=== PATIENT | male | born 1955 | race Caucasian/White ===

== ENCOUNTER 2017-04-18 10:13 | Emergency (ER) | payer BC ==
[2017-04-18 10:22] VITALS: BP 101/59; BMI 26.7
--- NOTE | 2017-04-18 11:05 | DR.GENAD ---
HPI - PCP Primary Care Physician: Jamil - HPI Comment HPI Comment: HISTORY BELOW. - Complaint/Symptoms Chief Complaint Doctors Comments: POST KNEE SURGERY LAST MONTH. PATIENT HAD IT POP 4 DAYS AGO. INCREASING PAIN SINCE. Chief Complaint:: Pt states he had a left knee replacement on the last month. Pt states he sat down in a low chair on monday and heard a pop and his doctor told him to come get an xray. - Nurses notes reviewed Nurses Notes Review: Yes - Source History Provided: Patient, Significant Other - Mode of Arrival Mode of Arrival: Ambulatory - Timing Onset of Chief Complaint: 04/14/17 Came on: Suddenly - Duration Duration: Constant Duration: Days - Severity Severity: Moderate PMH - PMH Past Medical History: Yes Past Medical History: GERD, Hypertension Past Surgical History: Yes Surgical History: Cholecystectomy, Ortho Surgery, Tonsillectomy Past Surgical History Comment: bilateral knee replacement - Family History History of Family Medical Conditions: Yes Family Medical History: [place], Hypertension - Social History Does patient currently use any type of tobacco product: No Have you used tobacco products in the last 12 months: No Type of Tobacco Use: None Does any household member use tobacco: No Alcohol Use: None Do you use any recreational Drugs:: No Lives With: Spouse Lives Where: Home - infectious screening In the last 2 months have you had wt loss of >10#?: NO Have you had fever, night sweats or hemotysis?: No Have you traveled outside the country in the last 6 months?: No Isolation: Standard ROS - Review of Systems Constitutional: No Symptoms Reported Eyes: No Symptoms Reported ENTM: No Symptoms Reported Respiratoy: No Symptoms Reported Cardiovascular: No Symptoms Reported Gastrointestinal/Abdominal: No Symptoms Reported Genitourinary: No Symptoms Reported Neurological: No Symptoms Reported Musculoskeletal: Left, Knee Integumentary: No Symptoms Reported Hematologic/Lymphatic: No Symptoms Reported Endocrine: No Symptoms Reported All Other Systems: Reviewed and Negative PE - Vital Signs Vitals: Temperature 97.8 F Pulse Rate 18 Respiratory Rate 51 Blood Pressure 101/59 O2 Sat by Pulse Oximetry 96 - General Limitations: No Limitations General Appearance: Alert - Head Head Exam: Normal Inspection - Eyes Eye exam: Normal Appearance - ENT ENT Exam: Normal External Ear Exam TM/Canal Exam: Left Normal Nose Exam: Normal Nose Exam Mouth Exam: Normal Inspection Throat Exam: Normal Inspection - Neck Neck Exam: Normal Inspection - Chest Chest Inspection: Normal Inspection - Respiratory Respiratory Exam: Normal Lung Sounds Bilat Respiratory Exam: Bilateral Clear to Auscultation - Cardiovascular Cardiovascular Exam: Regular Rate, Normal Rhythm, Normal Heart Sounds - Abdominal Exam Abdominal Exam: Normal Bowel Sounds - Extremities Extremities Exam: Tenderness (LT KNEE), Joint Swelling (LT KNEE) - Back Back Exam: Normal Inspection - Neurologic Neurological Exam: Alert, Oriented X3 - Psychiatric Psychiatric Exam: Normal Affect, Normal Mood - Skin Skin Exam: Normal Color MDM - Additional Information Additional Information Obtained From: Family - Differential Diagnosis Differential Diagnosis: LT KNEE PAIN, POST KNEE SURGERY Course - Treatment Treatment: SEE ORDERS. - Education/Counseling Education/Counseling: Patient, Family, Education Educated On: Diagnosis, Needs for Follow Up ROR - XRAY XRAY Interpreted by: Radiologist XRAY Findings: REPORT DISCUSS WITH PATIENT AND HIS . - Diagnosis Discharge Problem: Knee sprain Qualifiers: Encounter type: initial encounter Involved ligament of knee: unspecified ligament Laterality: left Qualified Code(s): S83.92XA - Sprain of unspecified site of left knee, initial encounter - Discharge Plan Disposition: 01 HOME, SELF-CARE Condition: Stable - Follow ups/Referrals Follow ups/Referrals: Jimbo Negron [Primary Care Provider] - 1 day - Instructions Instructions: Knee Sprain, [id number] Additional Instructions: RETURN TO ED IF WORSE.
--- NOTE | 2017-04-18 11:17 | RAD ---
HISTORY: Injury, left knee pain Study: Left knee two view Comparison: None Findings: The patient is status post total knee arthroplasty. Position and alignment is anatomic. There is no evidence for fracture, loosening, or joint effusion. IMPRESSION: Status post left TKA in good position without acute findings Reported By:
== END 2017-04-18 12:11 | disposition home or self-care (01) ==
LOC: ER 10:25
DX: S83.92XA Sprain of unspecified site of left knee, initial encounter (principal); Z96.652 Presence of left artificial knee joint; Y33.XXXA Other specified events, undetermined intent, initial encounter; Y92.9 Unspecified place or not applicable
CPT/HCPCS: 73560; 99282; 99283

== ENCOUNTER → 2017-05-01 | Outpatient (CLI) | payer BC ==
[2017-04-18 10:22] VITALS: BP 101/59
--- NOTE | 2017-05-01 10:19 | VAS ---
HISTORY: Coronary artery disease. Study: Carotid ultrasound. Comparison: Carotid ultrasound dated August 11, 2016. Technique: Multiple ma scale and color flow Doppler images of the right and left carotid arterial system were obtained. The vertebral arterial system was evaluated as well. Findings: Normal color flow Doppler is seen throughout the right and left carotid arterial system. Scattered calcific plaque. No hemodynamically significant stenosis is seen based on velocity criteria. The ri ght and left vertebral arteries demonstrate antegrade flow. IMPRESSION: 1. No hemodynamically significant stenosis. Reported By:
== END ==
LOC: RAD 09:28
PROVIDERS: ATTEND Thoracic Surgery (Cardiothoracic Vascular Surgery)
DX: I25.10 Atherosclerotic heart disease of native coronary artery without angina pectoris (principal)
CPT/HCPCS: 93880

== ENCOUNTER 2018-03-22 07:58 | Day surgery (SDC) | payer BC ==
[2018-03-22] MEDS ORDERED: D5 LR 1000 ML 1,000 ML IV ONE (08:25)
[2018-03-22] MEDS ORDERED: DIPRIVAN VIAL 20 ML ONE (10:27)
[2018-03-22 11:21] VITALS: BP 112/60
== END 2018-03-22 11:18 | disposition home or self-care (01) ==
LOC: SURG1 07:58
PROVIDERS: ATTEND Internal Medicine Gastroenterology
PROC: 0DJD8ZZ Inspection of Lower Intestinal Tract, Via Natural or Artificial Opening Endoscopic (ICD-10-PCS; principal; 2018-03-22 10:15)
PROC: 0DBL8ZX Excision of Transverse Colon, Via Natural or Artificial Opening Endoscopic, Diagnostic (ICD-10-PCS; principal; 2018-03-22 10:15)
PROC: 0DBP8ZX Excision of Rectum, Via Natural or Artificial Opening Endoscopic, Diagnostic (ICD-10-PCS; principal; 2018-03-22 10:15)
DX: Z12.11 Encounter for screening for malignant neoplasm of colon (principal); K63.5 Polyp of colon; K64.0 First degree hemorrhoids; K57.30 Diverticulosis of large intestine without perforation or abscess without bleeding; Z86.010 Personal history of colon polyps; D12.3 Benign neoplasm of transverse colon
CPT/HCPCS: A4217; J3490; J7120

== ENCOUNTER → 2018-03-28 | Outpatient (CLI) | payer BC ==
[2018-03-22 11:21] VITALS: BP 112/60
[2018-03-28 11:01] LABS: BASOPHILS % (AUTO) 1.1 % (0.2-1.0); EOSINOPHILS # (AUTO) 0.3 x10^3/uL (0.0-0.2); EOSINOPHILS % (AUTO) 7.1 % (0.9-2.9); HEMATOCRIT 40.6 % (42.0-54.0); LYMPHOCYTES # (AUTO) 0.7 X10^3/uL (1.3-2.9); LYMPHOCYTES % (AUTO) 16.4 % (21.0-51.0); MEAN CORPUSCULAR HEMOGLOBIN 33.7 pg (27.0-34.0); MEAN CORPUSCULAR HGB CONC 34.4 g/dL (33.0-35.0); MEAN CORPUSCULAR VOLUME 98.1 fL (80.0-100.0); MEAN PLATELET VOLUME 7.8 fL (7.4-11.0); MONOCYTES # (AUTO) 0.3 x10^3/uL (0.3-0.8); MONOCYTES % (AUTO) 7.2 % (0.0-13.0); NEUTROPHILS # (AUTO) 3.1 x10^3/uL (2.2-4.8); NEUTROPHILS % (AUTO) 68.2 % (42.0-75.0); PLATELET COUNT 173 X10^3/uL (150.0-450.0); RED BLOOD COUNT 4.14 X10^6/uL (4.7-6.0); RED CELL DISTRIBUTION WIDTH 13.5 % (11.6-16.5); WHITE BLOOD COUNT 4.5 X10^3/uL (3.6-10.0)
[2018-03-28 11:23] LABS: ALANINE AMINOTRANSFERASE 27 Units/L (12-78); ALBUMIN 3.4 g/dL (3.4-5.0); ALKALINE PHOSPHATASE 67 Units/L (46-116); ASPARTATE AMINO TRANSFERASE 17 Units/L (15-37); BILIRUBIN,DIRECT 0.18 mg/dL (0-0.2); BLOOD UREA NITROGEN 26 mg/dL (7-18); CALCIUM 8.1 mg/dL (8.5-10.1); CARBON DIOXIDE 27.6 mmol/L (21-32); CHLORIDE 107 mmol/L (98-107); CREATININE 2.23 mg/dL (0.70-1.30); SODIUM 139 mmol/L (136-145); TOTAL PROTEIN 6.1 g/dL (6.4-8.2); TSH (3RD GENERATION) 1.766 uIU/mL (0.358-3.74); eGFR BLACK RACES 38 (>60); eGFR NON BLACK RACES 32 (>60)
== END ==
LOC: LAB 10:27
PROVIDERS: ATTEND Physician Assistant
DX: R53.83 Other fatigue (principal); I71.2 Thoracic aortic aneurysm, without rupture
CPT/HCPCS: 36415; 80048; 80076; 84443; 85025

== ENCOUNTER 2023-05-12 13:51 | Observation (INO) ==
[2023-05-12] MEDS ORDERED: NS 500 ML IV 500 ML IV ONE (15:46)
[2023-05-12 16:03] VITALS: BMI 27.7
[2023-05-12 16:15] LABS: BASOPHILS % (AUTO) 0.9 % (0.2-1.0); EOSINOPHILS # (AUTO) 0.2 x10^3/uL (0.0-0.2); EOSINOPHILS % (AUTO) 3.8 % (0.9-2.9); HEMATOCRIT 31.1 % (42.0-54.0); HEMOGLOBIN 10.5 g/dL (13.5-18.0); LYMPHOCYTES # (AUTO) 0.8 X10^3/uL (1.3-2.9); LYMPHOCYTES % (AUTO) 18.9 % (21.0-51.0); MEAN CORPUSCULAR HEMOGLOBIN 32.1 pg (27.0-34.0); MEAN CORPUSCULAR HGB CONC 33.7 g/dL (33.0-35.0); MEAN CORPUSCULAR VOLUME 95.2 fL (80.0-100.0); MEAN PLATELET VOLUME 8.2 fL (7.4-11.0); MONOCYTES # (AUTO) 0.4 x10^3/uL (0.3-0.8); MONOCYTES % (AUTO) 8.8 % (0.0-13.0); NEUTROPHILS # (AUTO) 2.9 x10^3/uL (2.2-4.8); NEUTROPHILS % (AUTO) 67.6 % (42.0-75.0); PLATELET COUNT 171 X10^3/uL (150.0-450.0); RED BLOOD COUNT 3.27 X10^6/uL (4.7-6.0); WHITE BLOOD COUNT 4.3 X10^3/uL (3.6-10.0)
[2023-05-12 16:26] LABS: ALANINE AMINOTRANSFERASE 17 Units/L (12-78); ALBUMIN 3.8 g/dL (3.4-5.0); ALKALINE PHOSPHATASE 55 Units/L (46-116); ASPARTATE AMINO TRANSFERASE 17 Units/L (15-37); BLOOD UREA NITROGEN 42 mg/dL (7-18); CALCIUM 8.9 mg/dL (8.5-10.1); CARBON DIOXIDE 29.9 mmol/L (21-32); CHLORIDE 101 mmol/L (98-107); CREATININE 2.72 mg/dL (0.70-1.30); GLUCOSE 88 mg/dL (65-99); SODIUM 139 mmol/L (136-145); TOTAL PROTEIN 6.6 g/dL (6.4-8.2); eGFR NON BLACK RACES 25 (>60)
[2023-05-12] MEDS: NS 1,000 ML IV 1,000 ML IV SCH (18:40)
[2023-05-12] MEDS ORDERED: NORCO 5/325 MG TAB PO PRN (23:39)
[2023-05-13] MEDS: NS 1,000 ML IV 1,000 ML IV SCH (05:58)
[2023-05-13 06:28] LABS: BASOPHILS % (AUTO) 0.9 % (0.2-1.0); EOSINOPHILS # (AUTO) 0.2 x10^3/uL (0.0-0.2); EOSINOPHILS % (AUTO) 4.8 % (0.9-2.9); HEMATOCRIT 29.8 % (42.0-54.0); HEMOGLOBIN 10.1 g/dL (13.5-18.0); LYMPHOCYTES # (AUTO) 1.2 X10^3/uL (1.3-2.9); LYMPHOCYTES % (AUTO) 32.2 % (21.0-51.0); MEAN CORPUSCULAR HGB CONC 33.8 g/dL (33.0-35.0); MEAN CORPUSCULAR VOLUME 94.6 fL (80.0-100.0); MEAN PLATELET VOLUME 8.3 fL (7.4-11.0); MONOCYTES # (AUTO) 0.3 x10^3/uL (0.3-0.8); MONOCYTES % (AUTO) 8.6 % (0.0-13.0); NEUTROPHILS % (AUTO) 53.5 % (42.0-75.0); PLATELET COUNT 158 X10^3/uL (150.0-450.0); RED BLOOD COUNT 3.15 X10^6/uL (4.7-6.0); RED CELL DISTRIBUTION WIDTH 14.1 % (11.6-16.5); WHITE BLOOD COUNT 3.7 X10^3/uL (3.6-10.0)
[2023-05-13 06:53] LABS: ALANINE AMINOTRANSFERASE 17 Units/L (12-78); ALBUMIN 3.3 g/dL (3.4-5.0); ALKALINE PHOSPHATASE 50 Units/L (46-116); ASPARTATE AMINO TRANSFERASE 16 Units/L (15-37); BLOOD UREA NITROGEN 36 mg/dL (7-18); CALCIUM 8.9 mg/dL (8.5-10.1); CHLORIDE 104 mmol/L (98-107); COR CA(FOR HYPOALB) 9.5 mg/dL (8.5-10.1); GLUCOSE 93 mg/dL (65-99); POTASSIUM 3.8 mmol/L (3.5-5.1); SODIUM 140 mmol/L (136-145); eGFR NON BLACK RACES 30 (>60)
[2023-05-13 08:15] VITALS: BP 171/77; PULSE 64; RESP 18; TEMP 98.1; O2SAT 94
--- NOTE | 2023-05-28 21:58 | DR.UPDATE ---
H&P Update H&P Reviewed: Yes Any changes to H&P?: Yes Changes noted:: PRESENTED TO THE OFFICE TODAY WITH COMPLAINTS OF WEAKNESS, FATIGUE, UNSTEADY GAIT, DISORIENTATION, ELEVATED BLOOD PRESSURE. WE REVIEWED HIS LABS THAT WERE OBTAINED ON 05/11/23. BUN 35, CREATININE 2.81, GFR 24, RBC 3.32, HGB 10.4, HCT 33.2. ALL OTHER LAB VALUES WERE WITHIN NORMAL LIMITS. DUE TO ELEVATED BUN/CREATININE AND HIS SYMPTOMS, PATIENT WAS ADMITTED TO THE HOSPITAL OBSERVATION STATUS FOR EVALUATION AND TREATMENT OF ACUTE ON CHRONIC RENAL FAILURE, ANEMIA, GENERALIZED WEAKNESS, AND HTN. PATIENT HAS A PMH OF HTN, CHF, CAD, CABG, MDD, AND CHRONIC RENAL DISEASE. ON ARRIVAL TO THE HOSPITAL, HIS VITALS WERE: 97.8-64-20-96%-166/72. LABS WERE OBTAINED. WBC 4.3, RBC 3.27, HGB 10.5, HCT 31.1, PLT COUNT 171, SODIUM 139, POTASSIUM 4.0, CHLORIDE 101, CARBON DIOXIDE 29.9, BUN 42, CREATININE 2.72, GFR 25, GLUCOSE 88, CALCIUM 8.9, TOTAL BILI 0.70, AST 17, ALT 17, ALK PHOS 55, TOTAL PROTEIN 6.6, ALBUMIN 3.8. WE GAVE PATIENT A ONE LITER NORMAL SALINE BOLUS. HE WAS THEN STARTED ON NORMAL SALINE AT 75 ML/HR. WE WILL RESUME HIS HOME MEDICATIONS OF ATORVASTATIN, ENTRESTO, ELIQUIS, CARVEDILOL, FIORICET, BUPROPION, DULOXETINE, CLONAZEPAM, OMEPRAZOLE, LEVOTHYROXINE, PRAMIPEXOLE, OXYBUTYNIN, AND TIZANIDINE. OTHERWISE, WE WILL FOLLOW-UP WITH AM LABS AND CONTINUE TO MONITOR. TIME SPENT ON CLINICAL ASSESSMENT, REVIEWING LABS AND IMAGING, DECISION MAKING, AND DOCUMENTATION GREATER THAN 75 MINUTES. Patient was examined?: Yes
== END 2023-05-13 11:06 | disposition home or self-care (01) ==
LOC: MED/SURG
PROVIDERS: ADMIT Internal Medicine; ATTEND Internal Medicine

== ENCOUNTER 2024-02-13 22:52 | Observation (INO) ==
--- NOTE | 2024-02-13 23:01 | EKG ---
Test Reason : LOW BLOOD PRESSURE Blood Pressure : */* mmHG Vent. Rate : 59 BPM Atrial Rate : 59 BPM P-R Int : 176 ms QRS Dur : 186 ms QT Int : 536 ms P-R-T Axes : 71 59 65 degrees QTc Int : 530 ms Sinus bradycardia with occasional premature ventricular complexes Nonspecific intraventricular block Nonspecific ST and T wave abnormality Abnormal ECG When compared with ECG of 20-JUL-2023 10:36, premature ventricular complexes are now present HI interval has decreased Nonspecific intraventricular block has replaced Right bundle branch block Confirmed by Wilber Turk MD ([id number]) on 02/14/2024 7:35:17 AM Referred By: Confirmed By: Wilber Turk MD
--- NOTE | 2024-02-13 23:03 | DR.EXTPAIN ---
HPI Time seen Time Seen by Provider: 02/13/24 23:03 HPI Comment HPI Comment: Brought in by ems after becoming excessively weak at home; he says he's been feeling poorly since yesterday when he noted rectal bleeding which has persisted through today; he went to see Dr Lugo who sent him for blood work, the results of which he isn't sure; he denies cp, sob, abd pain, n/v. PMH PMH Past Medical History: Diabetes, GERD and Hypertension Past Surgical History: Yes Surgical History: Joint Replacement, Ortho Surgery, Tonsillectomy and Other Family History Family Medical History: [place] and Hypertension Social History Do you use any recreational Drugs:: No ROS Review of Systems Eyes: No Symptoms Reported ENTM: No Symptoms Reported Respiratoy: No Symptoms Reported Cardiovascular: No Symptoms Reported Gastrointestinal/Abdominal: See HPI Genitourinary: No Symptoms Reported Neurological: See HPI and Dizziness Musculoskeletal: No Symptoms Reported Integumentary: No Symptoms Reported Hematologic/Lymphatic: No Symptoms Reported Endocrine: No Symptoms Reported Psychiatric: No Symptoms Reported PE Vital Signs Vitals: Vital Signs Temperature 97.8 F Pulse Rate 62 Pulse Rate 60 Pulse Rate 63 Pulse Rate 58 Pulse Rate 57 Pulse Rate 60 Pulse Rate 59 Pulse Rate 60 Pulse Rate 61 Pulse Rate 60 Respiratory Rate 19 Respiratory Rate 31 Respiratory Rate 38 Respiratory Rate 19 Respiratory Rate 22 Respiratory Rate 20 Respiratory Rate 22 Respiratory Rate 23 Respiratory Rate 19 Respiratory Rate 15 Blood Pressure 107/55 Blood Pressure 97/52 Blood Pressure 97/52 Blood Pressure 101/54 Blood Pressure 101/54 Blood Pressure 98/51 Blood Pressure 98/51 Blood Pressure 95/46 Blood Pressure 87/46 Blood Pressure 87/46 Blood Pressure 87/48 Blood Pressure 82/44 Blood Pressure 93/48 Blood Pressure 77/54 O2 Sat by Pulse Oximetry 91 O2 Sat by Pulse Oximetry 93 O2 Sat by Pulse Oximetry 100 O2 Sat by Pulse Oximetry 100 O2 Sat by Pulse Oximetry 97 O2 Sat by Pulse Oximetry 98 O2 Sat by Pulse Oximetry 96 O2 Sat by Pulse Oximetry 89 O2 Sat by Pulse Oximetry 96 General Limitations: No Limitations General Appearance: Alert and In No Apparent Distress Head Head Exam: Normal Inspection Eyes Eye exam: Normal Appearance ENT ENT Exam: Normal Exam Neck Neck Exam: Normal Inspection Chest Chest Inspection: Normal Inspection Respiratory Respiratory Exam: Normal Lung Sounds Bilat Cardiovascular Cardiovascular Exam: Regular Rate and Normal Rhythm Abdominal Exam Abdominal Exam: Normal Inspection, Normal Bowel Sounds and Soft Extremities Extremities Exam: Normal Inspection Back Back Exam: Normal Inspection Neurological Neurological Exam: Alert, Oriented X3 and CN II-XII Intact Psychiatric Psychiatric Exam: Normal Affect and Normal Mood Skin Skin Exam: Warm, Dry, Intact and Normal Color COURSE Consultation Call Returned: 00:30 (Dr Glez returned call.) Critical Care Notes Total Time (mins): 30 Critical Diagnosis: hypotension, symptomatic anemia, rectal bleeding Critical Interventions: fluids wide open labs prbc discussion w/pt and admitting physician re: need for hospitalization, stabilization and further evaluation ROR Labs Reviewed Laboratory Results Reviewed?: Yes 02/13/24 22:55 02/13/24 22:55 Laboratory: WBC 6.8 X10^3/uL (3.6-10.0) 02/13/24 22:55 RBC 1.78 X10^6/uL (4.7-6.0) L 02/13/24 22:55 Hgb 5.9 g/dL (13.5-18.0) L* 02/13/24 22:55 Hct 17.9 % (42.0-54.0) L* 02/13/24 22:55 MCV 100.5 fL (80.0-100.0) H 02/13/24 22:55 MCH 32.9 pg (27.0-34.0) 02/13/24 22:55 MCHC 32.8 g/dL (33.0-35.0) L 02/13/24 22:55 RDW 14.5 % (11.6-16.5) 02/13/24 22:55 Plt Count 276 X10^3/uL (150.0-450.0) 02/13/24 22:55 MPV 7.9 fL (7.4-11.0) 02/13/24 22:55 Neut % (Auto) 67.5 % (42.0-75.0) 02/13/24 22:55 Lymph % (Auto) 18.8 % (21.0-51.0) L 02/13/24 22:55 [place] % (Auto) 7.1 % (0.0-13.0) 02/13/24 22:55 Eos % (Auto) 5.8 % (0.9-2.9) H 02/13/24 22:55 Baso % (Auto) 0.8 % (0.2-1.0) 02/13/24 22:55 Neut # (Auto) 4.6 x10^3/uL (2.2-4.8) 02/13/24 22:55 Lymph # (Auto) 1.3 X10^3/uL (1.3-2.9) 02/13/24 22:55 [place] # (Auto) 0.5 x10^3/uL (0.3-0.8) 02/13/24 22:55 Eos # (Auto) 0.4 x10^3/uL (0.0-0.2) H 02/13/24 22:55 Baso # (Auto) 0.1 X10^3/uL (0.0-0.1) 02/13/24 22:55 Absolute Nucleated RBC 0.2 /100WBC 02/13/24 22:55 PT 18.6 SECONDS (11.8-14.3) 02/13/24 22:55 INR Target Range - 02/13/24 22:55 INR 1.58 (0.8-1.3) H 02/13/24 22:55 APTT 30.4 SECONDS (22.9-36.5) 02/13/24 22:55 PTT Comment - 02/13/24 22:55 Sodium 140 mmol/L (136-145) 02/13/24 22:55 Corrected Sodium TNP 02/13/24 22:55 Potassium 4.6 mmol/L (3.5-5.1) 02/13/24 22:55 Chloride 107 mmol/L (98-107) 02/13/24 22:55 Carbon Dioxide 21.2 mmol/L (21-32) 02/13/24 22:55 BUN 83 mg/dL (7-18) H 02/13/24 22:55 Creatinine 3.20 mg/dL (0.70-1.30) H 02/13/24 22:55 Est GFR (MDRD) Af Amer 25 (>60) L 02/13/24 22:55 Est GFR (MDRD) Non-Af 21 (>60) L 02/13/24 22:55 Glucose 104 mg/dL (65-99) H 02/13/24 22:55 Calcium 8.5 mg/dL (8.5-10.1) 02/13/24 22:55 Corrected Calcium 9.7 mg/dL (8.5-10.1) 02/13/24 22:55 Total Bilirubin 0.40 mg/dL (0.2-1.0) 02/13/24 22:55 AST 14 Units/L (15-37) L 02/13/24 22:55 ALT 9 Units/L (12-78) L 02/13/24 22:55 Alkaline Phosphatase 87 Units/L (46-116) 02/13/24 22:55 B-Natriuretic Peptide 106 pg/mL (0-79) H 02/13/24 22:55 Total Protein 5.4 g/dL (6.4-8.2) L 02/13/24 22:55 Albumin 2.5 g/dL (3.4-5.0) L 02/13/24 22:55 Globulin 2.9 g/dL (2.5-4.5) 02/13/24 22:55 Albumin/Globulin Ratio 0.9 Ratio (1.1-2.1) L 02/13/24 22:55 Blood Type A POSITIVE 02/13/24 22:55 Antibody Screen Negative 02/13/24 22:55 Crossmatch See Detail 02/13/24 22:55 Other Results Comments: 08/24/23 colonoscopy: Colon polyps, sigmoid diverticulosis, and internal hemorrhoids. Opioid Opioid Risk Tool Age (Cam box if 16-45): No History of Preadolescent Sexual Abuse: No Total: 0 Total Score Risk Category: Low Risk Copyright: Tommie DAMON predicting aberrant behaviors Discharge Plan Diagnosis Discharge Problem: Acute hypotension, Symptomatic anemia, Rectal bleed Discharge Plan Patient Disposition: ADMITTED INPATIENT Condition: Stable Prescriptions: No Action atorvastatin 20 mg tablet 1 tab PO QDAY tizanidine 4 mg tablet 1 tab PO BID omeprazole 40 mg capsule,delayed release(DR/EC) 1 cap PO QDAY [id number]-bzsjrovnoxsaq-[id number] 50-325-40 mg tablet 1 tab PO DAILY carvedilol 3.125 mg tablet 2 tab PO BID levothyroxine [Synthroid] 25 mcg tablet 1 tab PO QDAY clonazepam 2 mg tablet 1 tab PO QDAY PRN oxybutynin chloride 5 mg tablet extended release 24hr 1 tab PO QDAY pramipexole 0.25 mg tablet 0.25 tab PO TID bupropion HCl 150 mg tablet extended release 24 hr 1 tab PO QAM duloxetine 60 mg capsule,delayed release(DR/EC) 1 cap PO QDAY Eliquis 5 mg tablet 1 tab PO BID Entresto 97-103 mg tablet 1 tab PO BID furosemide 40 mg tablet 40 mg PO QDAY PRNQty: 30 1RF Rx Instructions: TAKE ONE TABLET DAILY NEEDED FOR SWELLING Health Concerns: Post Hospitalization: new medications and changes needed to prevent readmission or further decline. Pt educated and given instructions on all concerns. Plan of Treatment: Continue with present treatment and follow up plan. Pt is to keep follow up appointment as instructed and take medications as ordered. Follow ups/Referrals Follow ups/Referrals: Jimbo Negron [Primary Care Provider] - 3 days
[2024-02-13 23:16] LABS: EOSINOPHILS # (AUTO) 0.4 x10^3/uL (0.0-0.2); LYMPHOCYTES % (AUTO) 18.8 % (21.0-51.0); MEAN CORPUSCULAR HGB CONC 32.8 g/dL (33.0-35.0)
[2024-02-13 23:21] LABS: BASOPHILS # (AUTO) 0.1 X10^3/uL (0.0-0.1); BASOPHILS % (AUTO) 0.8 % (0.2-1.0); EOSINOPHILS % (AUTO) 5.8 % (0.9-2.9); INR 1.58 (0.8-1.3); LYMPHOCYTES # (AUTO) 1.3 X10^3/uL (1.3-2.9); MEAN CORPUSCULAR HEMOGLOBIN 32.9 pg (27.0-34.0); MEAN CORPUSCULAR VOLUME 100.5 fL (80.0-100.0); MEAN PLATELET VOLUME 7.9 fL (7.4-11.0); MONOCYTES # (AUTO) 0.5 x10^3/uL (0.3-0.8); MONOCYTES % (AUTO) 7.1 % (0.0-13.0); NEUTROPHILS # (AUTO) 4.6 x10^3/uL (2.2-4.8); NEUTROPHILS % (AUTO) 67.5 % (42.0-75.0); PLATELET COUNT 276 X10^3/uL (150.0-450.0); RED BLOOD COUNT 1.78 X10^6/uL (4.7-6.0); RED CELL DISTRIBUTION WIDTH 14.5 % (11.6-16.5); WHITE BLOOD COUNT 6.8 X10^3/uL (3.6-10.0)
[2024-02-13 23:25] LABS: ALANINE AMINOTRANSFERASE 9 Units/L (12-78); ALBUMIN 2.5 g/dL (3.4-5.0); ALKALINE PHOSPHATASE 87 Units/L (46-116); ASPARTATE AMINO TRANSFERASE 14 Units/L (15-37); BLOOD UREA NITROGEN 83 mg/dL (7-18); CARBON DIOXIDE 21.2 mmol/L (21-32); CHLORIDE 107 mmol/L (98-107); GLUCOSE 104 mg/dL (65-99); HEMATOCRIT 17.9 % (42.0-54.0); HEMOGLOBIN 5.9 g/dL (13.5-18.0); POTASSIUM 4.6 mmol/L (3.5-5.1); SODIUM 140 mmol/L (136-145); TOTAL PROTEIN 5.4 g/dL (6.4-8.2); eGFR NON BLACK RACES 21 (>60)
[2024-02-13 23:31] LABS: CALCIUM 8.5 mg/dL (8.5-10.1); COR CA(FOR HYPOALB) 9.7 mg/dL (8.5-10.1)
[2024-02-13] MEDS: NS 1,000 ML IV 1,000 ML IV ONE (23:31)
[2024-02-13] MEDS ORDERED: NS 250 ML IV 250 ML IV ONE (23:47)
[2024-02-14] MEDS: NS 250 ML IV 250 ML IV ONE ×2 (00:33→05:35)
[2024-02-14 02:24] LABS: APPEARANCE,URINE CLEAR (CLEAR); BILIRUBIN,URINE NEGATIVE (NEGATIVE); BLOOD/HEMOGLOBIN,URINE NEGATIVE (NEGATIVE); COLOR,URINE YELLOW (YELLOW); GLUCOSE, URINE NEGATIVE (NEGATIVE); KETONES,URINE NEGATIVE (NEGATIVE); LEUKOCYTE ESTERASE ,URINE NEGATIVE (NEGATIVE); NITRITES,URINE NEGATIVE (NEGATIVE); PROTEIN,URINE NEGATIVE (NEGATIVE); UROBILINOGEN,URINE NORMAL (NORMAL)
[2024-02-14 03:00] VITALS: BMI 29.8
[2024-02-14] MEDS: CONSULT PHARMACY - POTASSIUM & MAGNESIUM XX SCH (05:39)
[2024-02-14] MEDS: D5 1/2 NS 1,000 ML 1,000 ML IV SCH (09:08)
[2024-02-14] MEDS: PROTONIX INJ 40 MG VIAL IVP SCH ×2 (09:08→09:19)
--- NOTE | 2024-02-14 09:30 | DR.H&P ---
H&P History & Physical for Day of: H&P Date: 02/14/24 Allergies Allergies Allergy/AdvReac Type Severity Reaction Status Date / Time No Known Drug Allergies Allergy Verified 02/13/24 23:20 History of Present Illness History of Present Illness: Mr Pineda is a 69y/o male with a PMH of LEYDA, gastritis, Atrial fibrillation, GERD, HTN presented with weakness, near syncope and bloody stools. He has been having these symptoms for the past few days. He had a fall yesterday due to weakness. He sees Dr Lugo and called the office yesterday due to black stools. He was told to have labs done at the hospital. Patient went back home and had more bleeding and dizziness so EMS was called. His Hgb was 6.6 and 5.9. His BP was noted to be low. He was given IV fluids and transfused 2 units of PRBCs overnight. He feels better this morning. He has not had any bleeding since admitted. He reports black tarry stools. Denies NSAID use. Denies prior hx of black stools. He does take Eliquis for atrial fibrillation. Denies any prior bleeding episodes. Patient had a colonoscopy and EGD by Dr Lugo in Aug 2023. See scanned reports. Labs/imaging reviewed -Hgb 5.9 Plt: 276 BUN/Cr:83/3.20 Glucose 74 Plan: Follow repeat H&H, transfuse if below 8. Add IVF fluids and pantoprazole IV. Dr Blackwood has been consulted, will check with their office if plans on doing a procedure tomorrow. Patient is currently NPO. Monitor for any bleeding episodes. Continue ICU care with telemetry. Hold Eliquis. Monitor AM labs/imaging. Past Medical History Past Medical History: Diabetes, GERD and Hypertension Past Surgical History Surgical History: Angioplasty/Stents and Ortho Surgery Family History Family Medical History: [place] and Hypertension Social History Does patient currently use any type of tobacco product: No Have you used tobacco products in the last 12 months: No Type of Tobacco Use: None How many years tobacco product used: 20 Does any household member use tobacco: No Alcohol Use: None Drug Use: None Medications Home Medications: Home Medications Medication Instructions Recorded Confirmed Type apixaban 5 mg tablet (Eliquis) 5 mg PO BID 04/12/23 02/14/24 History atorvastatin 20 mg tablet 20 mg PO QDAY 04/12/23 02/14/24 History bupropion HCl 150 mg 24 hr tablet, 150 mg PO QAM 04/12/23 02/14/24 History extended release clonazepam 2 mg tablet 2 mg PO QDAY PRN 04/12/23 02/14/24 History levothyroxine 25 mcg tablet 25 mcg PO QDAY 04/12/23 02/14/24 History (Synthroid) omeprazole 40 mg capsule,delayed 40 mg PO QDAY 04/12/23 02/14/24 History release oxybutynin chloride 5 mg 5 mg PO QDAY 04/12/23 02/14/24 History tablet,extended release 24 hr pramipexole 0.25 mg tablet 0.25 tab PO TID 04/12/23 02/13/24 History tizanidine 4 mg tablet 4 mg PO BID 04/12/23 02/14/24 History sacubitril 97 mg-valsartan 103 mg 1 tab PO BID 07/20/23 02/13/24 History tablet (Entresto) carvedilol 12.5 mg tablet 6.25 mg PO BID 02/14/24 02/14/24 History Labs 02/13/24 22:55 02/13/24 22:55 Labs: Laboratory WBC 6.8 X10^3/uL (3.6-10.0) 02/13/24 22:55 RBC 1.78 X10^6/uL (4.7-6.0) L 02/13/24 22:55 Hgb 5.9 g/dL (13.5-18.0) L* 02/13/24 22:55 Hct 17.9 % (42.0-54.0) L* 02/13/24 22:55 MCV 100.5 fL (80.0-100.0) H 02/13/24 22:55 MCH 32.9 pg (27.0-34.0) 02/13/24 22:55 MCHC 32.8 g/dL (33.0-35.0) L 02/13/24 22:55 RDW 14.5 % (11.6-16.5) 02/13/24 22:55 Plt Count 276 X10^3/uL (150.0-450.0) 02/13/24 22:55 MPV 7.9 fL (7.4-11.0) 02/13/24 22:55 Neut % (Auto) 67.5 % (42.0-75.0) 02/13/24 22:55 Lymph % (Auto) 18.8 % (21.0-51.0) L 02/13/24 22:55 [place] % (Auto) 7.1 % (0.0-13.0) 02/13/24 22:55 Eos % (Auto) 5.8 % (0.9-2.9) H 02/13/24 22:55 Baso % (Auto) 0.8 % (0.2-1.0) 02/13/24 22:55 Neut # (Auto) 4.6 x10^3/uL (2.2-4.8) 02/13/24 22:55 Lymph # (Auto) 1.3 X10^3/uL (1.3-2.9) 02/13/24 22:55 [place] # (Auto) 0.5 x10^3/uL (0.3-0.8) 02/13/24 22:55 Eos # (Auto) 0.4 x10^3/uL (0.0-0.2) H 02/13/24 22:55 Baso # (Auto) 0.1 X10^3/uL (0.0-0.1) 02/13/24 22:55 Absolute Nucleated RBC 0.2 /100WBC 02/13/24 22:55 PT 18.6 SECONDS (11.8-14.3) 02/13/24 22:55 INR Target Range - 02/13/24 22:55 INR 1.58 (0.8-1.3) H 02/13/24 22:55 APTT 30.4 SECONDS (22.9-36.5) 02/13/24 22:55 PTT Comment - 02/13/24 22:55 Sodium 140 mmol/L (136-145) 02/13/24 22:55 Corrected Sodium TNP 02/13/24 22:55 Potassium 4.6 mmol/L (3.5-5.1) 02/13/24 22:55 Chloride 107 mmol/L (98-107) 02/13/24 22:55 Carbon Dioxide 21.2 mmol/L (21-32) 02/13/24 22:55 BUN 83 mg/dL (7-18) H 02/13/24 22:55 Creatinine 3.20 mg/dL (0.70-1.30) H 02/13/24 22:55 Est GFR (MDRD) Af Amer 25 (>60) L 02/13/24 22:55 Est GFR (MDRD) Non-Af 21 (>60) L 02/13/24 22:55 Glucose 104 mg/dL (65-99) H 02/13/24 22:55 POC Glucose (mg/dL) 66 mg/dL (65-99) 02/14/24 06:01 Calcium 8.5 mg/dL (8.5-10.1) 02/13/24 22:55 Corrected Calcium 9.7 mg/dL (8.5-10.1) 02/13/24 22:55 Total Bilirubin 0.40 mg/dL (0.2-1.0) 02/13/24 22:55 AST 14 Units/L (15-37) L 02/13/24 22:55 ALT 9 Units/L (12-78) L 02/13/24 22:55 Alkaline Phosphatase 87 Units/L (46-116) 02/13/24 22:55 B-Natriuretic Peptide 106 pg/mL (0-79) H 02/13/24 22:55 Total Protein 5.4 g/dL (6.4-8.2) L 02/13/24 22:55 Albumin 2.5 g/dL (3.4-5.0) L 02/13/24 22:55 Globulin 2.9 g/dL (2.5-4.5) 02/13/24 22:55 Albumin/Globulin Ratio 0.9 Ratio (1.1-2.1) L 02/13/24 22:55 Specimen Type Clean catch urine 02/14/24 02:09 Urine Color Yellow (YELLOW) 02/14/24 02:09 Urine Appearance Clear (CLEAR) 02/14/24 02:09 Urine pH 5.0 (5.0 - 8.0) 02/14/24 02:09 Ur Specific [place] 1.010 (1.000-1.030) 02/14/24 02:09 Urine Protein Negative (NEGATIVE) 02/14/24 02:09 Urine Glucose (UA) Negative (NEGATIVE) 02/14/24 02:09 Urine Ketones Negative (NEGATIVE) 02/14/24 02:09 Urine Blood Negative (NEGATIVE) 02/14/24 02:09 Urine Nitrite Negative (NEGATIVE) 02/14/24 02:09 Urine Bilirubin Negative (NEGATIVE) 02/14/24 02:09 Urine Urobilinogen Normal (NORMAL) 02/14/24 02:09 Ur Leukocyte Esterase Negative (NEGATIVE) 02/14/24 02:09 Blood Type A POSITIVE 02/13/24 22:55 Antibody Screen Negative 02/13/24 22:55 Crossmatch See Detail 02/13/24 22:55 Review of Systems Constitutional: Weakness and Malaise Eyes: No Symptoms Reported ENT: No Symptoms Reported Respiratory: No Symptoms Reported Cardiovascular: No Symptoms Reported Gastrointestinal: Melena Genitourinary: No Symptoms Reported Musculoskeletal: No Symptoms Reported Skin: Bruising and Ecchymosis Neurological: No Symptoms Reported Physical Exam Vital Signs: Vital Signs Temperature 97.2 F Temperature 97.7 F Temperature 97.4 F Temperature 97.3 F Temperature 97.0 F Pulse Rate [Left] 64 Pulse Rate [Left] 71 Pulse Rate 77 Pulse Rate 76 Pulse Rate 74 Pulse Rate 75 Pulse Rate 72 Pulse Rate 76 Pulse Rate 80 Pulse Rate 73 Pulse Rate 70 Pulse Rate 64 Respiratory Rate 16 Respiratory Rate 18 Respiratory Rate 15 Respiratory Rate 18 Respiratory Rate 17 Respiratory Rate 12 Respiratory Rate 12 Respiratory Rate 15 Respiratory Rate 16 Respiratory Rate 16 Respiratory Rate 17 Respiratory Rate 18 Blood Pressure [Left Arm] 105/54 Blood Pressure [Left Arm] 124/62 Blood Pressure 108/73 Blood Pressure 130/59 Blood Pressure 130/59 Blood Pressure 130/59 Blood Pressure 123/54 Blood Pressure 131/58 Blood Pressure 118/53 Blood Pressure 108/48 Blood Pressure 107/61 O2 Sat by Pulse Oximetry 98 O2 Sat by Pulse Oximetry 99 O2 Sat by Pulse Oximetry 99 O2 Sat by Pulse Oximetry 100 O2 Sat by Pulse Oximetry 99 O2 Sat by Pulse Oximetry 100 O2 Sat by Pulse Oximetry 100 O2 Sat by Pulse Oximetry 100 O2 Sat by Pulse Oximetry 96 O2 Sat by Pulse Oximetry 100 O2 Sat by Pulse Oximetry 99 O2 Sat by Pulse Oximetry 97 Oriented: Normal Eyes: Normal Nose: Normal Throat: Normal Respiratory: Clear Throughout Cardiovascular: Normal Auscultation: Bowel Sounds: Normal Palpation: Normal Tenderness: Normal Skin: Decreased [place] Musculoskeletal: Normal Psychiatric: Normal Mood Description: Calm Affect: Normal Speech Pattern: Clear and Appropriate Assessment/Plan (1) Acute hypotension: Status: Acute (2) Symptomatic anemia: Status: Acute (3) Fatigue: Qualifiers: Fatigue type: unspecified Qualified Code(s): R53.83 - Other fatigue Status: Acute (4) Weakness: Status: Acute (5) GI bleed: Qualifiers: GI bleed type/associated pathology: melena Qualified Code(s): K92.1 - Melena Status: Acute (6) CHF (congestive heart failure): Qualifiers: Heart failure chronicity: chronic Heart failure type: unspecified Qualified Code(s): I50.9 - Heart failure, unspecified Status: Acute (7) GERD (gastroesophageal reflux disease): Qualifiers: Esophagitis presence: without esophagitis Qualified Code(s): K21.9 - Gastro-esophageal reflux disease without esophagitis Status: Chronic (8) Diabetes mellitus: Qualifiers: Diabetes mellitus complication status: without complication Diabetes mellitus laborer marine terminal insulin use: without laborer marine terminal use Diabetes mellitus type: type 2 Qualified Code(s): E11.9 - Type 2 diabetes mellitus without complications Status: Chronic (9) TREVER (acute kidney injury): Status: Acute Review H&P Reviewed: Yes Patient was examined?: Yes
[2024-02-14 10:38] LABS: BASOPHILS # (AUTO) 0.1 X10^3/uL (0.0-0.1); BASOPHILS % (AUTO) 0.8 % (0.2-1.0); EOSINOPHILS # (AUTO) 0.4 x10^3/uL (0.0-0.2); EOSINOPHILS % (AUTO) 6.8 % (0.9-2.9); HEMATOCRIT 23.4 % (42.0-54.0); HEMOGLOBIN 7.7 g/dL (13.5-18.0); LYMPHOCYTES # (AUTO) 1.4 X10^3/uL (1.3-2.9); LYMPHOCYTES % (AUTO) 20.8 % (21.0-51.0); MEAN CORPUSCULAR HEMOGLOBIN 31.6 pg (27.0-34.0); MEAN CORPUSCULAR HGB CONC 33.1 g/dL (33.0-35.0); MEAN CORPUSCULAR VOLUME 95.5 fL (80.0-100.0); MEAN PLATELET VOLUME 7.8 fL (7.4-11.0); MONOCYTES # (AUTO) 0.5 x10^3/uL (0.3-0.8); MONOCYTES % (AUTO) 7.4 % (0.0-13.0); NEUTROPHILS # (AUTO) 4.2 x10^3/uL (2.2-4.8); NEUTROPHILS % (AUTO) 64.2 % (42.0-75.0); PLATELET COUNT 247 X10^3/uL (150.0-450.0); RED BLOOD COUNT 2.45 X10^6/uL (4.7-6.0); RED CELL DISTRIBUTION WIDTH 17.8 % (11.6-16.5); WHITE BLOOD COUNT 6.6 X10^3/uL (3.6-10.0)
[2024-02-14] MEDS: SYNTHROID 25 mcg TAB PO SCH (11:05)
[2024-02-14] MEDS: OXYBUTYNIN CHLORIDE ER PO SCH (11:05)
[2024-02-14 13:47] LABS: IRON 65 ug/dL (50-175); TOTAL IRON BINDING CAPACITY 295 ug/dL (250-450)
[2024-02-14 13:52] LABS: ALBUMIN 2.7 g/dL (3.4-5.0); ALKALINE PHOSPHATASE 89 Units/L (46-116); ASPARTATE AMINO TRANSFERASE 19 Units/L (15-37); BLOOD UREA NITROGEN 73 mg/dL (7-18); CARBON DIOXIDE 20.8 mmol/L (21-32); CHLORIDE 110 mmol/L (98-107); CREATININE 2.54 mg/dL (0.70-1.30); GLUCOSE 74 mg/dL (65-99); POTASSIUM 4.1 mmol/L (3.5-5.1); SODIUM 143 mmol/L (136-145); TOTAL PROTEIN 5.7 g/dL (6.4-8.2); eGFR NON BLACK RACES 27 (>60)
[2024-02-14 14:11] LABS: ALANINE AMINOTRANSFERASE 14 Units/L (12-78); CALCIUM 8.3 mg/dL (8.5-10.1); COR CA(FOR HYPOALB) 9.3 mg/dL (8.5-10.1)
[2024-02-14] MEDS: NS 500 ML IV 500 ML IV ONE (14:18)
--- NOTE | 2024-02-14 14:28 | DR.CONSULT ---
CONSULT Consultation for Day of: Date: 02/14/24 Chief Complaint Chief Complaint: gi bleed/ectopy Allergies Allergies Allergy/AdvReac Type Severity Reaction Status Date / Time No Known Drug Allergies Allergy Verified 02/13/24 23:20 History of Present Illness History of Present Illness: 69 yo- s/p cabg- last cath 2022: patent marroquin to lad, eyak cmflx ok, total rca and graft to rca down- ef per echo 41% last year- 2021 30%- on coreg/entresto- also on DOAC for presumed pafib( will try to verify)- anemia for awhile but acute bleed and syncope got him to hospital- bp 100 at time- now getting blood- eliquis on hold- no cardiac meds yet- tired ,weak, no cp- Past Medical History Past Medical History: Diabetes, GERD and Hypertension Past Surgical History Surgical History: Angioplasty/Stents and Ortho Surgery Family History Family Medical History: PR and Hypertension Social History Does patient currently use any type of tobacco product: No Have you used tobacco products in the last 12 months: No Type of Tobacco Use: None How many years tobacco product used: 20 Does any household member use tobacco: No Alcohol Use: None Drug Use: None Medications Home Medications: No Known Drug Allergies Allergy (Verified 02/13/24 23:20) CONTINUE taking the following medications carvedilol 12.5 mg tablet 6.25 mg PO BID 02/14/24 [History] Physical Exam Vital Signs: Vital Signs Temperature 97.9 F Temperature 97.2 F Temperature 97.7 F Pulse Rate 86 Pulse Rate 83 Pulse Rate 81 Pulse Rate 81 Pulse Rate 82 Pulse Rate 85 Pulse Rate 84 Pulse Rate 82 Pulse Rate 75 Pulse Rate 74 Pulse Rate 75 Pulse Rate 75 Pulse Rate 71 Pulse Rate 72 Pulse Rate 73 Pulse Rate 74 Pulse Rate 74 Pulse Rate 75 Pulse Rate 74 Pulse Rate 74 Pulse Rate 74 Pulse Rate 74 Pulse Rate 74 Pulse Rate 75 Pulse Rate 75 Pulse Rate 74 Pulse Rate 77 Pulse Rate 77 Pulse Rate 75 Pulse Rate 77 Pulse Rate 76 Pulse Rate 74 Pulse Rate 75 Pulse Rate 72 Pulse Rate 76 Pulse Rate 80 Respiratory Rate 16 Respiratory Rate 13 Respiratory Rate 17 Respiratory Rate 16 Respiratory Rate 17 Respiratory Rate 17 Respiratory Rate 18 Respiratory Rate 16 Respiratory Rate 16 Respiratory Rate 15 Respiratory Rate 32 Respiratory Rate 31 Respiratory Rate 17 Respiratory Rate 15 Respiratory Rate 16 Respiratory Rate 16 Respiratory Rate 14 Respiratory Rate 30 Respiratory Rate 21 Respiratory Rate 23 Respiratory Rate 28 Respiratory Rate 21 Respiratory Rate 24 Respiratory Rate 26 Respiratory Rate 19 Respiratory Rate 17 Respiratory Rate 15 Respiratory Rate 23 Respiratory Rate 18 Respiratory Rate 16 Respiratory Rate 18 Respiratory Rate 15 Respiratory Rate 18 Respiratory Rate 17 Respiratory Rate 12 Respiratory Rate 12 Blood Pressure 110/56 Blood Pressure 111/51 Blood Pressure 142/77 Blood Pressure 147/61 Blood Pressure 155/66 Blood Pressure 154/65 Blood Pressure 155/68 Blood Pressure 108/54 Blood Pressure 128/61 Blood Pressure 130/57 Blood Pressure 135/56 Blood Pressure 124/62 Blood Pressure 124/62 Blood Pressure 124/62 Blood Pressure 108/73 Blood Pressure 130/59 Blood Pressure 130/59 Blood Pressure 130/59 Blood Pressure 123/54 Blood Pressure 131/58 O2 Sat by Pulse Oximetry 99 O2 Sat by Pulse Oximetry 100 O2 Sat by Pulse Oximetry 99 O2 Sat by Pulse Oximetry 99 O2 Sat by Pulse Oximetry 99 O2 Sat by Pulse Oximetry 100 O2 Sat by Pulse Oximetry 100 O2 Sat by Pulse Oximetry 100 O2 Sat by Pulse Oximetry 100 O2 Sat by Pulse Oximetry 100 O2 Sat by Pulse Oximetry 100 O2 Sat by Pulse Oximetry 100 O2 Sat by Pulse Oximetry 98 O2 Sat by Pulse Oximetry 100 O2 Sat by Pulse Oximetry 100 O2 Sat by Pulse Oximetry 100 O2 Sat by Pulse Oximetry 100 O2 Sat by Pulse Oximetry 100 O2 Sat by Pulse Oximetry 100 O2 Sat by Pulse Oximetry 100 O2 Sat by Pulse Oximetry 99 O2 Sat by Pulse Oximetry 100 O2 Sat by Pulse Oximetry 99 O2 Sat by Pulse Oximetry 100 O2 Sat by Pulse Oximetry 100 O2 Sat by Pulse Oximetry 100 O2 Sat by Pulse Oximetry 98 O2 Sat by Pulse Oximetry 99 O2 Sat by Pulse Oximetry 99 O2 Sat by Pulse Oximetry 99 O2 Sat by Pulse Oximetry 98 O2 Sat by Pulse Oximetry 99 O2 Sat by Pulse Oximetry 99 O2 Sat by Pulse Oximetry 100 O2 Sat by Pulse Oximetry 99 O2 Sat by Pulse Oximetry 100 O2 Sat by Pulse Oximetry 100 alert ox3 bruise on face no bruits loi occ pvcs clear lungs mild edema labs:hct 17- 23, cr 3.2 ( baseline 2-2.8) bnp 106 ( was 3000 in past) ekg: sb pvcs ivcd Plan (1) Symptomatic anemia: Status: Acute Plan: give blood, hold doac (2) GI bleed: Status: Acute Qualifiers: GI bleed type/associated pathology: melena Qualified Code(s): K92.1 - Melena (3) CHF (congestive heart failure): Status: Acute Qualifiers: Heart failure chronicity: chronic Heart failure type: unspecified Qualified Code(s): I50.9 - Heart failure, unspecified Narrative Support Text: no chf now- hold diuretic (4) GERD (gastroesophageal reflux disease): Status: Chronic Qualifiers: Esophagitis presence: without esophagitis Qualified Code(s): K21.9 - Ga stro-esophageal reflux disease without esophagitis (5) Diabetes mellitus: Status: Chronic Qualifiers: Diabetes mellitus type: type 2 Diabetes mellitus [employer] insulin use: without [employer] use Diabetes mellitus complication status: without complication Qualified Code(s): E11.9 - Type 2 diabetes mellitus without complications (6) TREVER (acute kidney injury): Status: Acute (7) CAD (coronary artery disease): Status: Acute (8) Cardiomyopathy: Status: Acute Plan: resume bb, resume entresto in next day or two once blood given and bp rises. check echo
[2024-02-14] MEDS: COREG TAB 3.125 MG PO SCH (14:47)
[2024-02-14] MEDS: MIRAPEX TAB 0.25 MG PO SCH (14:47)
[2024-02-14] MEDS: MIRALAX POWDER (255 GRAMS BTL) PO NR (17:25)
[2024-02-14 18:48] LABS: HEMATOCRIT 25.3 % (42.0-54.0); HEMOGLOBIN 8.5 g/dL (13.5-18.0)
[2024-02-15 05:37] LABS: BASOPHILS # (AUTO) 0.1 X10^3/uL (0.0-0.1); BASOPHILS % (AUTO) 0.7 % (0.2-1.0); EOSINOPHILS # (AUTO) 0.5 x10^3/uL (0.0-0.2); HEMATOCRIT 24.8 % (42.0-54.0); HEMOGLOBIN 8.5 g/dL (13.5-18.0); LYMPHOCYTES # (AUTO) 1.3 X10^3/uL (1.3-2.9); LYMPHOCYTES % (AUTO) 16.5 % (21.0-51.0); MEAN CORPUSCULAR HEMOGLOBIN 31.4 pg (27.0-34.0); MEAN CORPUSCULAR HGB CONC 34.2 g/dL (33.0-35.0); MEAN CORPUSCULAR VOLUME 91.8 fL (80.0-100.0); MEAN PLATELET VOLUME 7.8 fL (7.4-11.0); MONOCYTES # (AUTO) 0.5 x10^3/uL (0.3-0.8); MONOCYTES % (AUTO) 6.9 % (0.0-13.0); NEUTROPHILS # (AUTO) 5.4 x10^3/uL (2.2-4.8); NEUTROPHILS % (AUTO) 68.9 % (42.0-75.0); PLATELET COUNT 279 X10^3/uL (150.0-450.0); RED CELL DISTRIBUTION WIDTH 18.7 % (11.6-16.5); WHITE BLOOD COUNT 7.8 X10^3/uL (3.6-10.0)
[2024-02-15 05:53] LABS: ALANINE AMINOTRANSFERASE 14 Units/L (12-78); ALBUMIN 2.7 g/dL (3.4-5.0); ALKALINE PHOSPHATASE 87 Units/L (46-116); ASPARTATE AMINO TRANSFERASE 18 Units/L (15-37); BLOOD UREA NITROGEN 52 mg/dL (7-18); CALCIUM 8.8 mg/dL (8.5-10.1); CARBON DIOXIDE 20.6 mmol/L (21-32); CHLORIDE 109 mmol/L (98-107); COR CA(FOR HYPOALB) 9.8 mg/dL (8.5-10.1); CREATININE 2.07 mg/dL (0.70-1.30); GLUCOSE 87 mg/dL (65-99); SODIUM 141 mmol/L (136-145); TOTAL PROTEIN 5.6 g/dL (6.4-8.2); eGFR NON BLACK RACES 34 (>60)
[2024-02-15] MEDS: D5 LR 1,000 ML 1,000 ML IV ONE (10:05)
[2024-02-15] MEDS: DIPRIVAN VIAL 20 ML ONE ×3 (10:12→10:37)
[2024-02-15] MEDS: WELLBUTRIN XL 150 MG (DAILY) PO SCH (11:01)
[2024-02-15] MEDS: LIPITOR TAB 20 MG PO SCH (11:02)
[2024-02-15] MEDS: ENTRESTO 24/26 MG TABLET PO SCH (11:02)
[2024-02-15] MEDS: COREG TAB 3.125 MG PO SCH (11:02)
[2024-02-15] MEDS: OFIRMEV IV 1000 MG VIAL 1,000 MG/100 ML VIAL IV NR (11:03)
--- NOTE | 2024-02-15 14:50 | NOTE.SOAP ---
Soap Note Note for Day of Date of Exam: 02/15/24 Subjective Data Subjective Data: no cp/sob- cant remember details of PE- on doac for several years now at 5mg bid Objective Data Objective Data: 140/60 p78 back on coreg/entresto hct stable after blood egd: suspected angiodysplasia, old blood echo ef 40% inf hypo ( same as last year) Assessment Assessment: cad/cardiomyopathy/h/o PE on DOAC- active gi bleeding as of yesterday ( suspect angiodysplasia ) Plan Plan: when resume doac- use smaller dose of 2.5- go see dr Naik who is his quality assurance consultant to decide if DOAC even needed jail???
[2024-02-15] MEDS: KLONOPIN TAB 1 MG PO SCH (22:16)
[2024-02-16 00:36] VITALS: O2SAT 100
[2024-02-16 04:50] LABS: BASOPHILS # (AUTO) 0.1 X10^3/uL (0.0-0.1); BASOPHILS % (AUTO) 1.2 % (0.2-1.0); EOSINOPHILS # (AUTO) 0.7 x10^3/uL (0.0-0.2); EOSINOPHILS % (AUTO) 10.2 % (0.9-2.9); HEMATOCRIT 24.6 % (42.0-54.0); HEMOGLOBIN 8.3 g/dL (13.5-18.0); LYMPHOCYTES # (AUTO) 1.3 X10^3/uL (1.3-2.9); MEAN CORPUSCULAR HEMOGLOBIN 31.4 pg (27.0-34.0); MEAN CORPUSCULAR VOLUME 92.3 fL (80.0-100.0); MEAN PLATELET VOLUME 7.7 fL (7.4-11.0); MONOCYTES # (AUTO) 0.5 x10^3/uL (0.3-0.8); MONOCYTES % (AUTO) 7.5 % (0.0-13.0); NEUTROPHILS # (AUTO) 4.6 x10^3/uL (2.2-4.8); NEUTROPHILS % (AUTO) 63.1 % (42.0-75.0); PLATELET COUNT 287 X10^3/uL (150.0-450.0); RED BLOOD COUNT 2.66 X10^6/uL (4.7-6.0); RED CELL DISTRIBUTION WIDTH 18.7 % (11.6-16.5); WHITE BLOOD COUNT 7.3 X10^3/uL (3.6-10.0)
[2024-02-16 05:00] LABS: ALBUMIN 2.5 g/dL (3.4-5.0); CALCIUM 8.7 mg/dL (8.5-10.1); CARBON DIOXIDE 22.4 mmol/L (21-32); COR CA(FOR HYPOALB) 9.9 mg/dL (8.5-10.1); CREATININE 1.92 mg/dL (0.70-1.30); POTASSIUM 3.9 mmol/L (3.5-5.1); TOTAL PROTEIN 5.4 g/dL (6.4-8.2)
[2024-02-16 08:06] VITALS: BP 147/66; PULSE 83; RESP 20; TEMP 98.2
--- NOTE | 2024-02-16 08:24 | PCM.PROG ---
Progress Note Progress Note for Day of Date of Exam: 02/15/24 Subjective Subjective: Mr Pineda is a 69y/o male with a PMH of LEYDA, gastritis, Atrial fibrillation, GERD, HTN presented with weakness, admitted for GI bleed, acute hypotension, symptomatic anemia, and TREVER. This morning patient is resting comfortably in bed. He does have EGD and colonoscopy scheduled this morning. No acute events overnight. Labs/imaging: WBC 7.8, hemoglobin 8.5, platelets 279, sodium 141, potassium 4.0, creatinine 2.07, glucose 87. Plan: Follow repeat H&H, transfuse if below 8. Pt has received a total of 3 units packed red blood cells. IVF fluids and pantoprazole IV. Dr Blackwood has been consulted. Cardiology consulted, see recommendations. Patient is currently NPO. Monitor for any bleeding episodes. Continue ICU care with telemetry. Hold Eliquis. Monitor AM labs/imaging. Past Medical Family Social History Allergies: Allergies No Known Drug Allergies Allergy (Verified 02/13/24 23:20) Review of Systems ROS changes noted: see HPI Vital Signs and I&O's Vital Signs: Vital Signs Temperature 98.2 F Temperature 97.7 F Pulse Rate 83 Pulse Rate 83 Pulse Rate 90 Pulse Rate 76 Pulse Rate 78 Pulse Rate 77 Pulse Rate 79 Pulse Rate 80 Pulse Rate 81 Pulse Rate 81 Pulse Rate 92 Pulse Rate 79 Pulse Rate 84 Pulse Rate 84 Pulse Rate 84 Pulse Rate 88 Pulse Rate 87 Pulse Rate 92 Pulse Rate 86 Pulse Rate 92 Pulse Rate 84 Pulse Rate 90 Pulse Rate 86 Pulse Rate 89 Pulse Rate 86 Pulse Rate 88 Pulse Rate 104 Pulse Rate 91 Pulse Rate 86 Pulse Rate 87 Pulse Rate 92 Pulse Rate 92 Pulse Rate 90 Respiratory Rate 20 Respiratory Rate 23 Respiratory Rate 23 Respiratory Rate 17 Respiratory Rate 17 Respiratory Rate 21 Respiratory Rate 23 Respiratory Rate 19 Respiratory Rate 24 Respiratory Rate 12 Respiratory Rate 21 Respiratory Rate 19 Respiratory Rate 24 Respiratory Rate 29 Respiratory Rate 20 Respiratory Rate 24 Respiratory Rate 37 Respiratory Rate 29 Respiratory Rate 27 Respiratory Rate 37 Respiratory Rate 21 Respiratory Rate 22 Respiratory Rate 28 Respiratory Rate 34 Respiratory Rate 22 Respiratory Rate 26 Respiratory Rate 18 Respiratory Rate 24 Respiratory Rate 19 Respiratory Rate 21 Respiratory Rate 26 Respiratory Rate 29 Respiratory Rate 27 Blood Pressure 147/66 Blood Pressure 148/70 Blood Pressure 123/68 Blood Pressure 123/68 Blood Pressure 153/77 O2 Sat by Pulse Oximetry 100 O2 Sat by Pulse Oximetry 100 O2 Sat by Pulse Oximetry 99 O2 Sat by Pulse Oximetry 100 O2 Sat by Pulse Oximetry 100 O2 Sat by Pulse Oximetry 100 O2 Sat by Pulse Oximetry 100 O2 Sat by Pulse Oximetry 100 O2 Sat by Pulse Oximetry 100 O2 Sat by Pulse Oximetry 100 O2 Sat by Pulse Oximetry 100 O2 Sat by Pulse Oximetry 100 O2 Sat by Pulse Oximetry 100 O2 Sat by Pulse Oximetry 100 O2 Sat by Pulse Oximetry 100 O2 Sat by Pulse Oximetry 100 O2 Sat by Pulse Oximetry 100 O2 Sat by Pulse Oximetry 99 O2 Sat by Pulse Oximetry 100 O2 Sat by Pulse Oximetry 100 O2 Sat by Pulse Oximetry 100 O2 Sat by Pulse Oximetry 97 O2 Sat by Pulse Oximetry 98 O2 Sat by Pulse Oximetry 99 O2 Sat by Pulse Oximetry 96 O2 Sat by Pulse Oximetry 98 O2 Sat by Pulse Oximetry 99 O2 Sat by Pulse Oximetry 97 O2 Sat by Pulse Oximetry 99 O2 Sat by Pulse Oximetry 100 O2 Sat by Pulse Oximetry 98 O2 Sat by Pulse Oximetry 99 O2 Sat by Pulse Oximetry 100 Intake and Output: Intake & Output 02/13/24 02/14/24 02/15/24 02/16/24 23:59 23:59 23:59 23:59 Intake Total 2650 / 2650 3017 / 3017 380 / 380 Output Total 1800 / 1800 325 / 325 Balance 850 / 850 3017 / 3017 55 / 55 Physical Exam Oriented: Normal Eyes: Normal Nose: Normal Throat: Normal Respiratory: Normal Cardiovascular: Normal Auscultation: Bowel Sounds: Normal Tenderness: Normal Skin: Decreased Turgur Musculoskeletal: Normal Psychiatric: Normal Mood Description: Calm Affect: Normal Speech Pattern: Clear and Appropriate Laboratory and Diagnostics 02/16/24 04:16 02/16/24 04:16 Labs: Laboratory WBC 7.3 X10^3/uL (3.6-10.0) 02/16/24 04:16 RBC 2.66 X10^6/uL (4.7-6.0) L 02/16/24 04:16 Hgb 8.3 g/dL (13.5-18.0) L 02/16/24 04:16 Hct 24.6 % (42.0-54.0) L 02/16/24 04:16 MCV 92.3 fL (80.0-100.0) 02/16/24 04:16 MCH 31.4 pg (27.0-34.0) 02/16/24 04:16 MCHC 34.0 g/dL (33.0-35.0) 02/16/24 04:16 RDW 18.7 % (11.6-16.5) H 02/16/24 04:16 Plt Count 287 X10^3/uL (150.0-450.0) 02/16/24 04:16 MPV 7.7 fL (7.4-11.0) 02/16/24 04:16 Neut % (Auto) 63.1 % (42.0-75.0) 02/16/24 04:16 Lymph % (Auto) 18.0 % (21.0-51.0) L 02/16/24 04:16 [place] % (Auto) 7.5 % (0.0-13.0) 02/16/24 04:16 Eos % (Auto) 10.2 % (0.9-2.9) H 02/16/24 04:16 Baso % (Auto) 1.2 % (0.2-1.0) H 02/16/24 04:16 Neut # (Auto) 4.6 x10^3/uL (2.2-4.8) 02/16/24 04:16 Lymph # (Auto) 1.3 X10^3/uL (1.3-2.9) 02/16/24 04:16 [place] # (Auto) 0.5 x10^3/uL (0.3-0.8) 02/16/24 04:16 Eos # (Auto) 0.7 x10^3/uL (0.0-0.2) H 02/16/24 04:16 Baso # (Auto) 0.1 X10^3/uL (0.0-0.1) 02/16/24 04:16 Absolute Nucleated RBC 0.1 /100WBC 02/16/24 04:16 PT 18.6 SECONDS (11.8-14.3) 02/13/24 22:55 INR Target Range - 02/13/24 22:55 INR 1.58 (0.8-1.3) H 02/13/24 22:55 APTT 30.4 SECONDS (22.9-36.5) 02/13/24 22:55 PTT Comment - 02/13/24 22:55 Sodium 144 mmol/L (136-145) 02/16/24 04:16 Corrected Sodium 144 mmol/L (136-145) 02/16/24 04:16 Potassium 3.9 mmol/L (3.5-5.1) 02/16/24 04:16 Chloride 113 mmol/L (98-107) H 02/16/24 04:16 Carbon Dioxide 22.4 mmol/L (21-32) 02/16/24 04:16 BUN 34 mg/dL (7-18) H 02/16/24 04:16 Creatinine 1.92 mg/dL (0.70-1.30) H 02/16/24 04:16 Est GFR (MDRD) Af Amer 45 (>60) L 02/16/24 04:16 Est GFR (MDRD) Non-Af 37 (>60) L 02/16/24 04:16 Glucose 115 mg/dL (65-99) H 02/16/24 04:16 POC Glucose (mg/dL) 91 mg/dL (65-99) 02/16/24 06:00 Calcium 8.7 mg/dL (8.5-10.1) 02/16/24 04:16 Corrected Calcium 9.9 mg/dL (8.5-10.1) 02/16/24 04:16 Iron 65 ug/dL (50-175) 02/14/24 10:13 TIBC 295 ug/dL (250-450) 02/14/24 10:13 Ferritin 50 ng/mL (26-388) 02/14/24 10:13 Total Bilirubin 0.60 mg/dL (0.2-1.0) 02/16/24 04:16 AST 20 Units/L (15-37) 02/16/24 04:16 ALT 11 Units/L (12-78) L 02/16/24 04:16 Alkaline Phosphatase 90 Units/L (46-116) 02/16/24 04:16 B-Natriuretic Peptide 106 pg/mL (0-79) H 02/13/24 22:55 Total Protein 5.4 g/dL (6.4-8.2) L 02/16/24 04:16 Albumin 2.5 g/dL (3.4-5.0) L 02/16/24 04:16 Globulin 2.9 g/dL (2.5-4.5) 02/16/24 04:16 Albumin/Globulin Ratio 0.9 Ratio (1.1-2.1) L 02/16/24 04:16 Vitamin B12 > 2000 pg/mL (193-986) H 02/14/24 10:13 Folate > 20.0 ng/mL (>8.6) 02/14/24 10:13 Specimen Type Clean catch urine 02/14/24 02:09 Urine Color Yellow (YELLOW) 02/14/24 02:09 Urine Appearance Clear (CLEAR) 02/14/24 02:09 Urine pH 5.0 (5.0 - 8.0) 02/14/24 02:09 Ur Specific Tower 1.010 (1.000-1.030) 02/14/24 02:09 Urine Protein Negative (NEGATIVE) 02/14/24 02:09 Urine Glucose (UA) Negative (NEGATIVE) 02/14/24 02:09 Urine Ketones Negative (NEGATIVE) 02/14/24 02:09 Urine Blood Negative (NEGATIVE) 02/14/24 02:09 Urine Nitrite Negative (NEGATIVE) 02/14/24 02:09 Urine Bilirubin Negative (NEGATIVE) 02/14/24 02:09 Urine Urobilinogen Normal (NORMAL) 02/14/24 02:09 Ur Leukocyte Esterase Negative (NEGATIVE) 02/14/24 02:09 Stl Occult Blood (IFOB) Positive (NEGATIVE) A 02/14/24 21:42 Blood Type A POSITIVE 02/13/24 22:55 Antibody Screen Negative 02/13/24 22:55 Crossmatch See Detail 02/13/24 22:55 Plan (1) Symptomatic anemia: Status: Acute (2) GI bleed: Status: Acute Qualifiers: GI bleed type/associated pathology: melena Qualified Code(s): K92.1 - Melena (3) CHF (congestive heart failure): Status: Acute Qualifiers: Heart failure chronicity: chronic Heart failure type: unspecified Qualified Code(s): I50.9 - Heart failure, unspecified (4) GERD (gastroesophageal reflux disease): Status: Chronic Qualifiers: Esophagitis presence: without esophagitis Qualified Code(s): K21.9 - Ga stro-esophageal reflux disease without esophagitis (5) Diabetes mellitus: Status: Chronic Qualifiers: Diabetes mellitus type: type 2 Diabetes mellitus care home insulin use: without care home use Diabetes mellitus complication status: without complication Qualified Code(s): E11.9 - Type 2 diabetes mellitus without complications (6) TREVER (acute kidney injury): Status: Acute (7) CAD (coronary artery disease): Status: Acute (8) Cardiomyopathy: Status: Acute
--- NOTE | 2024-02-16 08:49 | NOTE.SOAP ---
Soap Note Note for Day of Date of Exam: 02/16/24 Subjective Data Subjective Data: no complaints Objective Data Objective Data: bp 120/68 p 86- occ pvcs hct 24 - stable last 2 days- Assessment Assessment: cad/cardiomyopathy/gi bleed presumed from angiodyspalsia- on doac for PE( being held due to bleed) Plan Plan: hold doac for sometime to insure stability- go see Dr Naik regarding does he need to continue but would resume low dose 2.5 mg eliquis
--- NOTE | 2024-02-22 06:14 | W.DIS.FURT ---
Summary of Discharge Discharge Summary of Date Date of Exam: 02/16/24 Admission Date Date of Admission: 02/13/24 Admission Diagnosis Patient Problems (Updated 02/14/24 @ 14:27 by SHILPA RHODES) Acute hypotension (Acute) I95.9 Symptomatic anemia (Acute) D64.9 Rectal bleed (Acute) K62.5 Hospital Course: Mr Pineda is a 69y/o male with a PMH of LEYDA, gastritis, Atrial fibrillation, GERD, HTN admitted for GI bleed, acute hypotension, symptomatic anemia, and TREVER. He had EGD and colonoscopy with GI-Dr Montes that revealed: The patients likely source of GI bleeding is secondary to a small bowel angiodysplasia which is exacerbated by his anticoagulation therapy. Alternatives such as Watchmann procedure for atrial fibrillation should be considered. I would recommend to monitor hemoglobin for another 24 hours and if no further signs of bleeding are noted, the patient can be discharged. However, I will recommend him to stay off of Elliquis for at least 2-3 weeks. A repeat colonoscopy for polyp surveillance is recommended at 3 year interval. Pt was discharged in stable condition. Hemoglobin stabilized. Rx protonix. Instructed to follow up with pcp, cardiology, and GI in 1 week. Vital Signs: Vital Signs (72 hours) 02/13/24 22:55 02/13/24 23:00 02/13/24 23:00 Temperature 97.8 F Pulse Rate 60 61 Pulse Rate [Left] Respiratory Rate 15 19 Blood Pressure 77/54 93/48 Blood Pressure [Left Arm] O2 Sat by Pulse Oximetry 96 Oxygen Delivery Method Room Air 02/13/24 23:05 02/13/24 23:05 02/13/24 23:10 Temperature Pulse Rate 60 59 L Pulse Rate [Left] Respiratory Rate 23 22 Blood Pressure 82/44 Blood Pressure [Left Arm] O2 Sat by Pulse Oximetry 89 L 96 Oxygen Delivery Method 02/13/24 23:10 02/13/24 23:15 02/13/24 23:15 Temperature Pulse Rate 60 Pulse Rate [Left] Respiratory Rate 20 Blood Pressure 87/48 87/46 Blood Pressure [Left Arm] O2 Sat by Pulse Oximetry 98 Oxygen Delivery Method 02/13/24 23:15 02/13/24 23:23 02/13/24 23:23 Temperature Pulse Rate 57 L Pulse Rate [Left] Respiratory Rate 22 Blood Pressure 87/46 95/46 Blood Pressure [Left Arm] O2 Sat by Pulse Oximetry 97 Oxygen Delivery Method 02/13/24 23:25 02/13/24 23:25 02/13/24 23:25 Temperature Pulse Rate 58 L Pulse Rate [Left] Respiratory Rate 19 Blood Pressure 98/51 98/51 Blood Pressure [Left Arm] O2 Sat by Pulse Oximetry 100 Oxygen Delivery Method 02/13/24 23:30 02/13/24 23:30 02/13/24 23:30 Temperature Pulse Rate 63 Pulse Rate [Left] Respiratory Rate 38 H Blood Pressure 101/54 101/54 Blood Pressure [Left Arm] O2 Sat by Pulse Oximetry 100 Oxygen Delivery Method 02/13/24 23:35 02/13/24 23:35 02/13/24 23:35 Temperature Pulse Rate 60 Pulse Rate [Left] Respiratory Rate 31 H Blood Pressure 97/52 97/52 Blood Pressure [Left Arm] O2 Sat by Pulse Oximetry 93 L Oxygen Delivery Method 02/13/24 23:40 02/13/24 23:40 02/13/24 23:40 Temperature Pulse Rate 62 Pulse Rate [Left] Respiratory Rate 19 Blood Pressure 107/55 107/55 Blood Pressure [Left Arm] O2 Sat by Pulse Oximetry 91 L Oxygen Delivery Method 02/13/24 23:40 02/13/24 23:45 02/13/24 23:45 Temperature Pulse Rate 62 63 Pulse Rate [Left] Respiratory Rate 19 16 Blood Pressure 102/42 Blood Pressure [Left Arm] O2 Sat by Pulse Oximetry 91 L 93 L Oxygen Delivery Method 02/13/24 23:50 02/13/24 23:50 02/13/24 23:55 Temperature Pulse Rate 63 Pulse Rate [Left] Respiratory Rate 15 Blood Pressure 107/55 102/50 Blood Pressure [Left Arm] O2 Sat by Pulse Oximetry 97 Oxygen Delivery Method 02/13/24 23:55 02/14/24 00:00 02/14/24 00:00 Temperature Pulse Rate 65 65 Pulse Rate [Left] Respiratory Rate 17 15 Blood Pressure 109/53 Blood Pressure [Left Arm] O2 Sat by Pulse Oximetry 94 L 94 L Oxygen Delivery Method 02/14/24 00:10 02/14/24 00:10 02/14/24 00:15 Temperature Pulse Rate 68 Pulse Rate [Left] Respiratory Rate 28 H Blood Pressure 106/51 99/49 Blood Pressure [Left Arm] O2 Sat by Pulse Oximetry 94 L Oxygen Delivery Method 02/14/24 00:15 02/14/24 00:20 02/14/24 00:20 Temperature Pulse Rate 66 66 Pulse Rate [Left] Respiratory Rate 15 20 Blood Pressure 90/44 Blood Pressure [Left Arm] O2 Sat by Pulse Oximetry 96 98 Oxygen Delivery Method 02/14/24 00:25 02/14/24 00:25 02/14/24 00:30 Temperature Pulse Rate 66 Pulse Rate [Left] Respiratory Rate 17 Blood Pressure 94/46 95/52 Blood Pressure [Left Arm] O2 Sat by Pulse Oximetry 99 Oxygen Delivery Method 02/14/24 00:30 02/14/24 00:35 02/14/24 00:35 Temperature Pulse Rate 65 67 Pulse Rate [Left] Respiratory Rate 16 17 Blood Pressure 111/53 Blood Pressure [Left Arm] O2 Sat by Pulse Oximetry 97 100 Oxygen Delivery Method 02/14/24 00:40 02/14/24 00:40 02/14/24 01:05 Temperature Pulse Rate 67 Pulse Rate [Left] 66 Respiratory Rate 14 15 Blood Pressure 99/49 Blood Pressure [Left Arm] 99/51 O2 Sat by Pulse Oximetry 98 100 Oxygen Delivery Method 02/14/24 00:45 02/14/24 00:47 02/14/24 00:47 Temperature Pulse Rate 67 67 Pulse Rate [Left] Respiratory Rate 16 19 Blood Pressure 99/52 Blood Pressure [Left Arm] O2 Sat by Pulse Oximetry 98 96 Oxygen Delivery Method 02/14/24 00:50 02/14/24 00:50 02/14/24 00:56 Temperature Pulse Rate 66 Pulse Rate [Left] Respiratory Rate 19 Blood Pressure 92/47 98/48 Blood Pressure [Left Arm] O2 Sat by Pulse Oximetry 100 Oxygen Delivery Method 02/14/24 00:56 02/14/24 01:00 02/14/24 01:00 Temperature Pulse Rate 68 66 Pulse Rate [Left] Respiratory Rate 19 19 Blood Pressure 99/51 Blood Pressure [Left Arm] O2 Sat by Pulse Oximetry 100 100 Oxygen Delivery Method 02/14/24 01:19 02/14/24 02:00 02/14/24 00:46 Temperature 97.0 F L Pulse Rate Pulse Rate [Left] 71 64 Respiratory Rate 18 17 Blood Pressure Blood Pressure [Left Arm] 124/62 105/54 O2 Sat by Pulse Oximetry 97 99 Oxygen Delivery Method Room Air Room Air Room Air 02/14/24 03:00 02/14/24 04:00 02/14/24 05:00 Temperature 97.3 F L 97.4 F L Pulse Rate 64 70 73 Pulse Rate [Left] Respiratory Rate 16 16 15 Blood Pressure 107/61 108/48 118/53 Blood Pressure [Left Arm] O2 Sat by Pulse Oximetry 100 96 100 Oxygen Delivery Method 02/14/24 05:30 02/14/24 06:24 02/14/24 07:00 Temperature 97.7 F Pulse Rate 80 Pulse Rate [Left] Respiratory Rate 12 Blood Pressure 131/58 Blood Pressure [Left Arm] O2 Sat by Pulse Oximetry 100 Oxygen Delivery Method Room Air Room Air 02/14/24 07:00 02/14/24 07:27 02/14/24 07:30 Temperature 97.2 F L Pulse Rate 76 72 Pulse Rate [Left] Respiratory Rate 12 17 Blood Pressure 123/54 130/59 Blood Pressure [Left Arm] O2 Sat by Pulse Oximetry 100 99 Oxygen Delivery Method 02/14/24 07:30 02/14/24 07:30 02/14/24 07:30 Temperature Pulse Rate 75 Pulse Rate [Left] Respiratory Rate 18 Blood Pressure 130/59 130/59 Blood Pressure [Left Arm] O2 Sat by Pulse Oximetry 100 Oxygen Delivery Method 02/14/24 07:45 02/14/24 08:00 02/14/24 08:00 Temperature Pulse Rate 74 76 Pulse Rate [Left] Respiratory Rate 15 18 Blood Pressure 108/73 Blood Pressure [Left Arm] O2 Sat by Pulse Oximetry 99 99 Oxygen Delivery Method 02/14/24 08:15 02/14/24 08:24 02/14/24 08:24 Temperature Pulse Rate 77 Pulse Rate [Left] Respiratory Rate 16 Blood Pressure 124/62 124/62 Blood Pressure [Left Arm] O2 Sat by Pulse Oximetry 98 Oxygen Delivery Method 02/14/24 08:24 02/14/24 08:24 02/14/24 08:30 Temperature Pulse Rate 75 77 Pulse Rate [Left] Respiratory Rate 18 23 Blood Pressure 124/62 Blood Pressure [Left Arm] O2 Sat by Pulse Oximetry 99 99 Oxygen Delivery Method 02/14/24 08:31 02/14/24 08:31 02/14/24 08:45 Temperature Pulse Rate 77 74 Pulse Rate [Left] Respiratory Rate 15 17 Blood Pressure 135/56 Blood Pressure [Left Arm] O2 Sat by Pulse Oximetry 99 98 Oxygen Delivery Method 02/14/24 09:00 02/14/24 09:01 02/14/24 09:01 Temperature Pulse Rate 75 75 Pulse Rate [Left] Respiratory Rate 19 26 H Blood Pressure 130/57 Blood Pressure [Left Arm] O2 Sat by Pulse Oximetry 100 100 Oxygen Delivery Method 02/14/24 09:15 02/14/24 09:30 02/14/24 09:30 Temperature Pulse Rate 74 74 Pulse Rate [Left] Respiratory Rate 24 21 Blood Pressure 128/61 Blood Pressure [Left Arm] O2 Sat by Pulse Oximetry 100 99 Oxygen Delivery Method 02/14/24 09:40 02/14/24 09:40 02/14/24 09:45 Temperature Pulse Rate 74 74 Pulse Rate [Left] Respiratory Rate 28 H 23 Blood Pressure 108/54 Blood Pressure [Left Arm] O2 Sat by Pulse Oximetry 100 99 Oxygen Delivery Method 02/14/24 10:00 02/14/24 10:00 02/14/24 09:10 Temperature Pulse Rate 74 Pulse Rate [Left] Respiratory Rate 21 Blood Pressure 155/68 Blood Pressure [Left Arm] O2 Sat by Pulse Oximetry 100 Oxygen Delivery Method Room Air 02/14/24 10:15 02/14/24 10:30 02/14/24 10:31 Temperature Pulse Rate 75 74 Pulse Rate [Left] Respiratory Rate 30 H 14 Blood Pressure 154/65 Blood Pressure [Left Arm] O2 Sat by Pulse Oximetry 100 100 Oxygen Delivery Method 02/14/24 10:31 02/14/24 10:45 02/14/24 11:00 Temperature Pulse Rate 74 73 72 Pulse Rate [Left] Respiratory Rate 16 16 15 Blood Pressure Blood Pressure [Left Arm] O2 Sat by Pulse Oximetry 100 100 100 Oxygen Delivery Method 02/14/24 11:01 02/14/24 11:01 02/14/24 11:22 Temperature Pulse Rate 71 Pulse Rate [Left] Respiratory Rate 17 Blood Pressure 155/66 Blood Pressure [Left Arm] O2 Sat by Pulse Oximetry 100 98 Oxygen Delivery Method 02/14/24 11:30 02/14/24 11:45 02/14/24 12:00 Temperature Pulse Rate 75 75 Pulse Rate [Left] Respiratory Rate 31 H 32 H Blood Pressure 147/61 Blood Pressure [Left Arm] O2 Sat by Pulse Oximetry 100 100 Oxygen Delivery Method 02/14/24 12:00 02/14/24 12:15 02/14/24 12:30 Temperature 97.9 F Pulse Rate 74 75 82 Pulse Rate [Left] Respiratory Rate 15 16 16 Blood Pressure Blood Pressure [Left Arm] O2 Sat by Pulse Oximetry 100 100 100 Oxygen Delivery Method 02/14/24 12:31 02/14/24 12:31 02/14/24 12:45 Temperature Pulse Rate 84 85 Pulse Rate [Left] Respiratory Rate 18 17 Blood Pressure 142/77 Blood Pressure [Left Arm] O2 Sat by Pulse Oximetry 100 100 Oxygen Delivery Method 02/14/24 13:00 02/14/24 13:01 02/14/24 13:01 Temperature Pulse Rate 82 81 Pulse Rate [Left] Respiratory Rate 17 16 Blood Pressure 111/51 Blood Pressure [Left Arm] O2 Sat by Pulse Oximetry 99 99 Oxygen Delivery Method 02/14/24 13:15 02/14/24 13:30 02/14/24 13:30 Temperature Pulse Rate 81 83 Pulse Rate [Left] Respiratory Rate 17 13 Blood Pressure 110/56 Blood Pressure [Left Arm] O2 Sat by Pulse Oximetry 99 100 Oxygen Delivery Method 02/14/24 13:45 02/14/24 14:00 02/14/24 14:14 Temperature Pulse Rate 86 81 87 Pulse Rate [Left] Respiratory Rate 16 18 18 Blood Pressure Blood Pressure [Left Arm] O2 Sat by Pulse Oximetry 99 99 100 Oxygen Delivery Method 02/14/24 14:14 02/14/24 14:15 02/14/24 14:30 Temperature Pulse Rate 81 81 Pulse Rate [Left] Respiratory Rate 19 21 Blood Pressure 134/71 Blood Pressure [Left Arm] O2 Sat by Pulse Oximetry 100 100 Oxygen Delivery Method 02/14/24 14:31 02/14/24 14:31 02/14/24 14:34 Temperature Pulse Rate 85 81 Pulse Rate [Left] Respiratory Rate 32 H 45 H Blood Pressure 148/63 Blood Pressure [Left Arm] O2 Sat by Pulse Oximetry 99 100 Oxygen Delivery Method 02/14/24 14:34 02/14/24 14:45 02/14/24 15:00 Temperature Pulse Rate 83 84 Pulse Rate [Left] Respiratory Rate 19 18 Blood Pressure 131/61 Blood Pressure [Left Arm] O2 Sat by Pulse Oximetry 100 100 Oxygen Delivery Method 02/14/24 15:01 02/14/24 15:01 02/14/24 15:15 Temperature Pulse Rate 84 83 Pulse Rate [Left] Respiratory Rate 17 19 Blood Pressure 161/67 Blood Pressure [Left Arm] O2 Sat by Pulse Oximetry 100 100 Oxygen Delivery Method 02/14/24 15:18 02/14/24 15:18 02/14/24 15:30 Temperature Pulse Rate 82 81 Pulse Rate [Left] Respiratory Rate 17 18 Blood Pressure 148/65 Blood Pressure [Left Arm] O2 Sat by Pulse Oximetry 100 100 Oxygen Delivery Method 02/14/24 15:31 02/14/24 15:31 02/14/24 15:45 Temperature Pulse Rate 82 80 Pulse Rate [Left] Respiratory Rate 24 18 Blood Pressure 132/94 Blood Pressure [Left Arm] O2 Sat by Pulse Oximetry 100 100 Oxygen Delivery Method 02/14/24 16:00 02/14/24 16:00 02/14/24 16:15 Temperature Pulse Rate 81 80 Pulse Rate [Left] Respiratory Rate 19 18 Blood Pressure 128/60 Blood Pressure [Left Arm] O2 Sat by Pulse Oximetry 100 100 Oxygen Delivery Method 02/14/24 16:30 02/14/24 16:30 02/14/24 16:45 Temperature Pulse Rate 80 82 Pulse Rate [Left] Respiratory Rate 18 19 Blood Pressure 139/64 Blood Pressure [Left Arm] O2 Sat by Pulse Oximetry 100 100 Oxygen Delivery Method 02/14/24 17:00 02/14/24 17:01 02/14/24 17:01 Temperature Pulse Rate 81 80 Pulse Rate [Left] Respiratory Rate 18 17 Blood Pressure 129/59 Blood Pressure [Left Arm] O2 Sat by Pulse Oximetry 100 100 Oxygen Delivery Method 02/14/24 17:15 02/14/24 17:16 02/14/24 17:16 Temperature Pulse Rate 82 83 Pulse Rate [Left] Respiratory Rate 21 22 Blood Pressure 130/63 Blood Pressure [Left Arm] O2 Sat by Pulse Oximetry 100 100 Oxygen Delivery Method 02/14/24 17:30 02/14/24 17:30 02/14/24 17:30 Temperature Pulse Rate 82 Pulse Rate [Left] Respiratory Rate 23 Blood Pressure 135/62 135/62 Blood Pressure [Left Arm] O2 Sat by Pulse Oximetry 100 Oxygen Delivery Method 02/14/24 17:30 02/14/24 17:45 02/14/24 18:00 Temperature Pulse Rate 82 80 80 Pulse Rate [Left] Respiratory Rate 23 28 H 20 Blood Pressure Blood Pressure [Left Arm] O2 Sat by Pulse Oximetry 100 100 100 Oxygen Delivery Method 02/14/24 18:00 02/14/24 18:00 02/14/24 18:15 Temperature Pulse Rate 79 Pulse Rate [Left] Respiratory Rate 19 Blood Pressure 133/63 133/63 Blood Pressure [Left Arm] O2 Sat by Pulse Oximetry 100 Oxygen Delivery Method 02/14/24 19:00 02/14/24 20:00 02/14/24 21:00 Temperature 97.9 F Pulse Rate 78 79 79 Pulse Rate [Left] Respiratory Rate 21 20 24 Blood Pressure 167/69 155/67 167/73 Blood Pressure [Left Arm] O2 Sat by Pulse Oximetry 100 100 100 Oxygen Delivery Method Room Air Room Air Room Air 02/14/24 22:00 02/14/24 19:00 02/14/24 21:00 Temperature Pulse Rate 77 Pulse Rate [Left] Respiratory Rate 19 Blood Pressure 163/70 Blood Pressure [Left Arm] O2 Sat by Pulse Oximetry 100 Oxygen Delivery Method Room Air Room Air Room Air 02/14/24 23:00 02/15/24 00:00 02/15/24 01:00 Temperature 97.8 F Pulse Rate 74 76 76 Pulse Rate [Left] Respiratory Rate 16 18 19 Blood Pressure 145/73 149/66 159/70 Blood Pressure [Left Arm] O2 Sat by Pulse Oximetry 100 100 100 Oxygen Delivery Method Room Air Room Air Room Air 02/15/24 02:00 02/15/24 03:00 02/15/24 04:00 Temperature 97.8 F Pulse Rate 86 82 85 Pulse Rate [Left] Respiratory Rate 22 19 24 Blood Pressure 156/71 149/64 170/67 Blood Pressure [Left Arm] O2 Sat by Pulse Oximetry 98 99 99 Oxygen Delivery Method Room Air Room Air Room Air 02/15/24 05:00 02/15/24 06:00 02/15/24 07:00 Temperature Pulse Rate 84 88 82 Pulse Rate [Left] Respiratory Rate 20 20 22 Blood Pressure 136/60 158/75 143/88 Blood Pressure [Left Arm] O2 Sat by Pulse Oximetry 99 93 L 99 Oxygen Delivery Method Room Air Room Air Room Air 02/15/24 08:00 02/15/24 08:10 02/15/24 09:00 Temperature 98.1 F Pulse Rate 92 H 87 Pulse Rate [Left] Respiratory Rate 19 Blood Pressure 169/84 144/70 Blood Pressure [Left Arm] O2 Sat by Pulse Oximetry 100 99 Oxygen Delivery Method Room Air Room Air Room Air 02/15/24 12:00 02/15/24 16:00 02/15/24 07:00 Temperature 97.6 F 97.6 F Pulse Rate 78 80 Pulse Rate [Left] Respiratory Rate 14 20 Blood Pressure 142/65 136/66 Blood Pressure [Left Arm] O2 Sat by Pulse Oximetry 96 96 Oxygen Delivery Method Room Air Room Air Room Air 02/15/24 20:00 02/15/24 20:32 02/15/24 19:00 Temperature 98.4 F Pulse Rate 77 Pulse Rate [Left] Respiratory Rate 20 Blood Pressure 147/68 Blood Pressure [Left Arm] O2 Sat by Pulse Oximetry 98 Oxygen Delivery Method Room Air Room Air Room Air 02/16/24 00:00 02/16/24 04:00 02/15/24 22:00 Temperature 98.6 F 97.7 F Pulse Rate 92 H 86 Pulse Rate [Left] Respiratory Rate 28 H 27 H Blood Pressure 152/95 123/68 153/71 Blood Pressure [Left Arm] O2 Sat by Pulse Oximetry 100 100 Oxygen Delivery Method Room Air Room Air 02/15/24 22:00 02/15/24 22:15 02/15/24 22:30 Temperature Pulse Rate 87 86 Pulse Rate [Left] Respiratory Rate 19 20 Blood Pressure 153/71 Blood Pressure [Left Arm] O2 Sat by Pulse Oximetry 100 99 Oxygen Delivery Method 02/15/24 22:45 02/15/24 23:00 02/15/24 23:06 Temperature Pulse Rate 86 86 Pulse Rate [Left] Respiratory Rate 27 H 20 Blood Pressure 133/62 Blood Pressure [Left Arm] O2 Sat by Pulse Oximetry 100 99 Oxygen Delivery Method 02/15/24 23:06 02/15/24 23:15 02/15/24 23:30 Temperature Pulse Rate 87 88 90 Pulse Rate [Left] Respiratory Rate 23 27 H 29 H Blood Pressure Blood Pressure [Left Arm] O2 Sat by Pulse Oximetry 99 98 95 Oxygen Delivery Method 02/15/24 23:45 02/16/24 00:00 02/16/24 00:00 Temperature Pulse Rate 89 98 H Pulse Rate [Left] Respiratory Rate 42 H 54 H Blood Pressure 152/95 Blood Pressure [Left Arm] O2 Sat by Pulse Oximetry 94 L 90 L Oxygen Delivery Method 02/16/24 00:15 02/16/24 00:30 02/16/24 00:45 Temperature Pulse Rate 91 H 90 92 H Pulse Rate [Left] Respiratory Rate 30 H 27 H 29 H Blood Pressure Blood Pressure [Left Arm] O2 Sat by Pulse Oximetry 100 100 99 Oxygen Delivery Method 02/16/24 01:00 02/16/24 01:15 02/16/24 01:30 Temperature Pulse Rate 92 H 87 86 Pulse Rate [Left] Respiratory Rate 26 H 21 19 Blood Pressure Blood Pressure [Left Arm] O2 Sat by Pulse Oximetry 98 100 99 Oxygen Delivery Method 02/16/24 01:45 02/16/24 02:00 02/16/24 02:00 Temperature Pulse Rate 91 H 104 H Pulse Rate [Left] Respiratory Rate 24 18 Blood Pressure 153/77 Blood Pressure [Left Arm] O2 Sat by Pulse Oximetry 97 99 Oxygen Delivery Method 02/16/24 02:15 02/16/24 02:30 02/16/24 02:45 Temperature Pulse Rate 88 86 89 Pulse Rate [Left] Respiratory Rate 26 H 22 34 H Blood Pressure Blood Pressure [Left Arm] O2 Sat by Pulse Oximetry 98 96 99 Oxygen Delivery Method 02/16/24 03:00 02/16/24 03:15 02/16/24 03:30 Temperature Pulse Rate 86 90 84 Pulse Rate [Left] Respiratory Rate 28 H 22 21 Blood Pressure Blood Pressure [Left Arm] O2 Sat by Pulse Oximetry 98 97 100 Oxygen Delivery Method 02/16/24 03:45 02/16/24 04:00 02/16/24 04:00 Temperature Pulse Rate 92 H 92 H Pulse Rate [Left] Respiratory Rate 37 H 29 H Blood Pressure 123/68 Blood Pressure [Left Arm] O2 Sat by Pulse Oximetry 100 99 Oxygen Delivery Method 02/16/24 04:15 02/16/24 04:30 02/16/24 04:45 Temperature Pulse Rate 87 88 84 Pulse Rate [Left] Respiratory Rate 37 H 24 20 Blood Pressure Blood Pressure [Left Arm] O2 Sat by Pulse Oximetry 100 100 100 Oxygen Delivery Method 02/16/24 05:00 02/16/24 05:15 02/16/24 05:30 Temperature Pulse Rate 84 84 79 Pulse Rate [Left] Respiratory Rate 29 H 24 19 Blood Pressure Blood Pressure [Left Arm] O2 Sat by Pulse Oximetry 100 100 100 Oxygen Delivery Method 02/16/24 05:52 02/16/24 06:00 02/16/24 06:02 Temperature Pulse Rate 92 H 81 81 Pulse Rate [Left] Respiratory Rate 21 12 24 Blood Pressure Blood Pressure [Left Arm] O2 Sat by Pulse Oximetry 100 100 100 Oxygen Delivery Method 02/16/24 06:02 02/16/24 06:15 02/16/24 06:30 Temperature Pulse Rate 80 79 Pulse Rate [Left] Respiratory Rate 19 23 Blood Pressure 148/70 Blood Pressure [Left Arm] O2 Sat by Pulse Oximetry 100 100 Oxygen Delivery Method 02/16/24 06:45 02/16/24 07:00 02/16/24 07:15 Temperature Pulse Rate 77 78 76 Pulse Rate [Left] Respiratory Rate 21 17 17 Blood Pressure Blood Pressure [Left Arm] O2 Sat by Pulse Oximetry 100 100 100 Oxygen Delivery Method 02/16/24 07:30 02/16/24 07:45 02/16/24 08:00 Temperature 98.2 F Pulse Rate 90 83 83 Pulse Rate [Left] Respiratory Rate 23 23 20 Blood Pressure Blood Pressure [Left Arm] O2 Sat by Pulse Oximetry 99 100 100 Oxygen Delivery Method 02/16/24 08:00 02/16/24 07:00 Temperature Pulse Rate Pulse Rate [Left] Respiratory Rate Blood Pressure 147/66 Blood Pressure [Left Arm] O2 Sat by Pulse Oximetry Oxygen Delivery Method Room Air Labs: Laboratory Last Values WBC 7.3 X10^3/uL (3.6-10.0) 02/16/24 04:16 RBC 2.66 X10^6/uL (4.7-6.0) L 02/16/24 04:16 Hgb 8.3 g/dL (13.5-18.0) L 02/16/24 04:16 Hct 24.6 % (42.0-54.0) L 02/16/24 04:16 MCV 92.3 fL (80.0-100.0) 02/16/24 04:16 MCH 31.4 pg (27.0-34.0) 02/16/24 04:16 MCHC 34.0 g/dL (33.0-35.0) 02/16/24 04:16 RDW 18.7 % (11.6-16.5) H 02/16/24 04:16 Plt Count 287 X10^3/uL (150.0-450.0) 02/16/24 04:16 MPV 7.7 fL (7.4-11.0) 02/16/24 04:16 Neut % (Auto) 63.1 % (42.0-75.0) 02/16/24 04:16 Lymph % (Auto) 18.0 % (21.0-51.0) L 02/16/24 04:16 [place] % (Auto) 7.5 % (0.0-13.0) 02/16/24 04:16 Eos % (Auto) 10.2 % (0.9-2.9) H 02/16/24 04:16 Baso % (Auto) 1.2 % (0.2-1.0) H 02/16/24 04:16 Neut # (Auto) 4.6 x10^3/uL (2.2-4.8) 02/16/24 04:16 Lymph # (Auto) 1.3 X10^3/uL (1.3-2.9) 02/16/24 04:16 [place] # (Auto) 0.5 x10^3/uL (0.3-0.8) 02/16/24 04:16 Eos # (Auto) 0.7 x10^3/uL (0.0-0.2) H 02/16/24 04:16 Baso # (Auto) 0.1 X10^3/uL (0.0-0.1) 02/16/24 04:16 Absolute Nucleated RBC 0.1 /100WBC 02/16/24 04:16 PT 18.6 SECONDS (11.8-14.3) 02/13/24 22:55 INR Target Range - 02/13/24 22:55 INR 1.58 (0.8-1.3) H 02/13/24 22:55 APTT 30.4 SECONDS (22.9-36.5) 02/13/24 22:55 PTT Comment - 02/13/24 22:55 Sodium 144 mmol/L (136-145) 02/16/24 04:16 Corrected Sodium 144 mmol/L (136-145) 02/16/24 04:16 Potassium 3.9 mmol/L (3.5-5.1) 02/16/24 04:16 Chloride 113 mmol/L (98-107) H 02/16/24 04:16 Carbon Dioxide 22.4 mmol/L (21-32) 02/16/24 04:16 BUN 34 mg/dL (7-18) H 02/16/24 04:16 Creatinine 1.92 mg/dL (0.70-1.30) H 02/16/24 04:16 Est GFR (MDRD) Af Amer 45 (>60) L 02/16/24 04:16 Est GFR (MDRD) Non-Af 37 (>60) L 02/16/24 04:16 Glucose 115 mg/dL (65-99) H 02/16/24 04:16 POC Glucose (mg/dL) 91 mg/dL (65-99) 02/16/24 06:00 Calcium 8.7 mg/dL (8.5-10.1) 02/16/24 04:16 Corrected Calcium 9.9 mg/dL (8.5-10.1) 02/16/24 04:16 Iron 65 ug/dL (50-175) 02/14/24 10:13 TIBC 295 ug/dL (250-450) 02/14/24 10:13 Ferritin 50 ng/mL (26-388) 02/14/24 10:13 Total Bilirubin 0.60 mg/dL (0.2-1.0) 02/16/24 04:16 AST 20 Units/L (15-37) 02/16/24 04:16 ALT 11 Units/L (12-78) L 02/16/24 04:16 Alkaline Phosphatase 90 Units/L (46-116) 02/16/24 04:16 B-Natriuretic Peptide 106 pg/mL (0-79) H 02/13/24 22:55 Total Protein 5.4 g/dL (6.4-8.2) L 02/16/24 04:16 Albumin 2.5 g/dL (3.4-5.0) L 02/16/24 04:16 Globulin 2.9 g/dL (2.5-4.5) 02/16/24 04:16 Albumin/Globulin Ratio 0.9 Ratio (1.1-2.1) L 02/16/24 04:16 Vitamin B12 > 2000 pg/mL (193-986) H 02/14/24 10:13 Folate > 20.0 ng/mL (>8.6) 02/14/24 10:13 Specimen Type Clean catch urine 02/14/24 02:09 Urine Color Yellow (YELLOW) 02/14/24 02:09 Urine Appearance Clear (CLEAR) 02/14/24 02:09 Urine pH 5.0 (5.0 - 8.0) 02/14/24 02:09 Ur Specific Comfort 1.010 (1.000-1.030) 02/14/24 02:09 Urine Protein Negative (NEGATIVE) 02/14/24 02:09 Urine Glucose (UA) Negative (NEGATIVE) 02/14/24 02:09 Urine Ketones Negative (NEGATIVE) 02/14/24 02:09 Urine Blood Negative (NEGATIVE) 02/14/24 02:09 Urine Nitrite Negative (NEGATIVE) 02/14/24 02:09 Urine Bilirubin Negative (NEGATIVE) 02/14/24 02:09 Urine Urobilinogen Normal (NORMAL) 02/14/24 02:09 Ur Leukocyte Esterase Negative (NEGATIVE) 02/14/24 02:09 Stl Occult Blood (IFOB) Positive (NEGATIVE) A 02/14/24 21:42 Blood Type A POSITIVE 02/13/24 22:55 Antibody Screen Negative 02/13/24 22:55 Crossmatch See Detail 02/13/24 22:55 Reason For Visit: SYMPTOMATIC ANEMIA, RECTAL BLEEDING Discharge Date Discharge Date: 02/16/24 Discharge Diagnosis All Active Problems (Updated 02/14/24 @ 14:27 by SHILPA RHODES) Cardiomyopathy (Acute) CAD (coronary artery disease) (Acute) TREVER (acute kidney injury) (Acute) GI bleed (Acute) Acute hypotension (Acute) Symptomatic anemia (Acute) Rectal bleed (Acute) Unsteady gait (Acute) Fatigue (Acute) Weakness (Acute) Contusion of knee, left (Acute) Abrasion of knee, left (Acute) CHF (congestive heart failure) (Acute) Exertional dyspnea (Acute) Anemia (Acute) GERD (gastroesophageal reflux disease) (Chronic) Diabetes mellitus (Chronic) HTN (hypertension) (Chronic) Acute renal failure (Acute) Hyperkalemia (Acute) Contusion of left knee (Acute) Knee sprain (Acute) Laceration of head (Acute) Strain of left hip (Acute) Plan of Treatment: Continue with present treatment and follow up plan. Pt is to keep follow up appointment as instructed and take medications as ordered. Discharge Medications Discharge Medications: No Known Drug Allergies Allergy (Verified 02/13/24 23:20) CONTINUE taking the following medications carvedilol 12.5 mg tablet 6.25 mg PO BID 02/14/24 [History] Discharge Plan Discharge Plan Hospital Course: Mr Pineda is a 69y/o male with a PMH of LEYDA, gastritis, Atrial fibrillation, GERD, HTN admitted for GI bleed, acute hypotension, symptomatic anemia, and TREVER. He had EGD and colonoscopy with GI-Dr Montes that revealed: The patients likely source of GI bleeding is secondary to a small bowel angiodysplasia which is exacerbated by his anticoagulation therapy. Alternatives such as Watchmann procedure for atrial fibrillation should be considered. I would recommend to monitor hemoglobin for another 24 hours and if no further signs of bleeding are noted, the patient can be discharged. However, I will recommend him to stay off of Elliquis for at least 2-3 weeks. A repeat colonoscopy for polyp surveillance is recommended at 3 year interval. Pt was discharged in stable condition. Hemoglobin stabilized. Rx protonix. Instructed to follow up with pcp, cardiology, and GI in 1 week. Patient Disposition: 01 HOME, SELF-CARE Condition: Stable Health Concerns: Post Hospitalization: new medications and changes needed to prevent readmission or further decline. Pt educated and given instructions on all concerns. Care Plan Goals: Problem: Fluid Volume Deficit Goal: Maintain/Improved Adequate hydration. Instructions: Follow provided instructions. Follow up with primary physician as directed. Contact primary care physician or report to the closest Emergency Room if condition worsens. Plan of Treatment: Continue with present treatment and follow up plan. Pt is to keep follow up appointment as instructed and take medications as ordered. Prescriptions: New pantoprazole [Protonix] 40 mg Tablet,Delayed Release (Dr/Ec) 40 mg PO BID Qty: 60 0RF Continued atorvastatin 20 mg tablet 20 mg PO QDAY tizanidine 4 mg tablet 4 mg PO BID omeprazole 40 mg capsule,delayed release(DR/EC) 40 mg PO QDAY levothyroxine [Synthroid] 25 mcg tablet 25 mcg PO QDAY clonazepam 2 mg tablet 2 mg PO QDAY PRN oxybutynin chloride 5 mg tablet extended release 24hr 5 mg PO QDAY pramipexole 0.25 mg tablet 0.25 tab PO TID bupropion HCl 150 mg tablet extended release 24 hr 150 mg PO QAM Eliquis 5 mg tablet 5 mg PO BID carvedilol 12.5 mg tablet 6.25 mg PO BID Entresto 97-103 mg tablet 1 tab PO BID furosemide 40 mg tablet 40 mg PO QDAY PRNQty: 30 1RF Rx Instructions: TAKE ONE TABLET DAILY NEEDED FOR SWELLING Orders to Discharge Patient Discharge Orders: Discharge (Routine); Ordered 02/16/24 Ordered By: Dawson Ziegler Follow ups/Referrals Follow ups/Referrals: RAUDEL REYNAGA [STAFF PHYSICIAN] - 03/06/24 3:40 pm Jimbo Negron [Primary Care Provider] - 02/22/24 12:20 pm SHIRAZ MONTES [STAFF PHYSICIAN] - 02/29/24 2:20 pm ([facility]) Instructions Instructions: Acute Kidney Injury, Adult, Gastritis, Adult, [id number], Diverticulitis, [id number], Esophagitis, Anemia, Colonoscopy, Adult, Care After, [id number], Upper Endoscopy, Care After, Hemorrhoids, [id number], Gastrointestinal Bleeding, [id number], Monitored Anesthesia Care, Care After Activity Restrictions/Additional Instructions: Hold all blood thinners 2-3 weeks as recommended by Dr. Montes. Follow up with cardiology. Stand Alone Forms: Post Hospital Follow Up Care
== END 2024-02-16 11:15 | disposition home or self-care (01) ==
LOC: ICU 22:52 → ER 22:52 → ICU 02-14 01:09
PROVIDERS: ADMIT Internal Medicine; ATTEND Internal Medicine
DX: N17.8 Other acute kidney failure; K55.20 Angiodysplasia of colon without hemorrhage; I50.9 Heart failure, unspecified; R00.1 Bradycardia, unspecified; K21.00 Gastro-esophageal reflux disease with esophagitis, without bleeding; Z91.81 History of falling; R55 Syncope and collapse; R53.1 Weakness; E11.9 Type 2 diabetes mellitus without complications; K57.30 Diverticulosis of large intestine without perforation or abscess without bleeding; R42 Dizziness and giddiness; R26.89 Other abnormalities of gait and mobility; I95.89 Other hypotension; R94.31 Abnormal electrocardiogram [ECG] [EKG]; R53.83 Other fatigue; I11.0 Hypertensive heart disease with heart failure; I42.9 Cardiomyopathy, unspecified; K64.1 Second degree hemorrhoids; D64.89 Other specified anemias; I48.91 Unspecified atrial fibrillation; I28.0 Arteriovenous fistula of pulmonary vessels; K92.1 Melena; K29.00 Acute gastritis without bleeding; Z79.01 Long term (current) use of anticoagulants; R79.1 Abnormal coagulation profile

== ENCOUNTER 2024-08-08 08:56 | Inpatient (IN) ==
[2024-08-08 09:19] VITALS: BMI 30.9
--- NOTE | 2024-08-08 09:45 | DR.GENAD ---
HPI Time Seen Time Seen by Provider: 08/08/24 09:42 PCP Primary Care Physician: Dr. Negron HPI Comment HPI Comment: Pt with history of dark bloody stools for about 3 wks. He has history of GI bleed and states he has had work up previously. due to heart conditions he is on anticoagulation. He states that he has had diarrhea since yesterday with about 4 watery BM since then. Denies CP, SOB, N/V. Pt states earlier he felt weak and he was able to sit himself back on the bed without any injury. Denies LOC. Pt states he had a Watchman placed 6 mo ago and was supposed to stop Eliquis bu he forgot and has been taking Eliquis and Plavix. Pt has small cut on LLE which he states happened on Monday. Pt states he has had dressing changed. Complaint/Symptoms Chief Complaint:: Pt c/o 2-3 weeks of dark tarry stool. Pt states that this morning he got up to go to the bathroom and had generalized stomach cramping and his legs started shaking and he became weak and had to sit himself back down on the bed. COVID-19 Coronavirus risk:travel/contact w/high risk person: No Has patient experienced Coronavirus symptoms: No Source History Provided: EMS Mode of Arrival Mode of Arrival: EMS Timing Onset of Chief Complaint: 08/08/24 PMH PMH Past Medical History: Yes Past Medical History: Anemia, CHF, Coronary Artery Disease, Diabetes, Dyslipidemia, GERD and Hypertension Past Medical History Comment: Afib, Gastritis Past Surgical History: Yes Surgical History: Joint Replacement, Ortho Surgery and Tonsillectomy Family History History of Family Medical Conditions: Yes Family Medical History: [place], Coronary Artery Disease and Hypertension Social History Does patient currently use any type of tobacco product: No Have you used tobacco products in the last 12 months: No Type of Tobacco Use: None Does any household member use tobacco: No Alcohol Use: None Do you use any recreational Drugs:: No Lives With: Alone Lives Where: Home Travel Risk Coronavirus risk:travel/contact w/high risk person: No Has patient experienced Coronavirus symptoms: No Infectious screening In the last 2 months have you had wt loss of >10#?: NO Have you had fever, night sweats or hemotysis?: No Have you traveled outside the country in the last 6 months?: No Isolation: Standard ROS Review of Systems Constitutional: No Symptoms Reported Eyes: No Symptoms Reported ENTM: No Symptoms Reported Respiratoy: No Symptoms Reported Cardiovascular: No Symptoms Reported Gastrointestinal/Abdominal: See HPI and Diarrhea (Drk stools. ) Genitourinary: No Symptoms Reported Neurological: No Symptoms Reported Musculoskeletal: No Symptoms Reported Integumentary: No Symptoms Reported Hematologic/Lymphatic: No Symptoms Reported Endocrine: No Symptoms Reported Psychiatric: No Symptoms Reported All Other Systems: Reviewed and Negative PE Vital Signs Vitals: Vital Signs Temperature 97.6 F Pulse Rate [Left Radial] 57 Pulse Rate [Left Radial] 79 Pulse Rate [Left Radial] 61 Pulse Rate 51 Pulse Rate 57 Pulse Rate 56 Pulse Rate 57 Pulse Rate 59 Respiratory Rate 15 Respiratory Rate 25 Respiratory Rate 19 Respiratory Rate 25 Respiratory Rate 24 Respiratory Rate 20 Respiratory Rate 20 Respiratory Rate 20 Blood Pressure [Left Arm] 126/58 Blood Pressure [Left Arm] 115/55 Blood Pressure [Left Arm] 88/50 Blood Pressure 115/55 O2 Sat by Pulse Oximetry 98 O2 Sat by Pulse Oximetry 100 O2 Sat by Pulse Oximetry 100 O2 Sat by Pulse Oximetry 100 O2 Sat by Pulse Oximetry 100 O2 Sat by Pulse Oximetry 100 O2 Sat by Pulse Oximetry 97 O2 Sat by Pulse Oximetry 97 General Limitations: No Limitations General Appearance: Alert and In No Apparent Distress Head Head Exam: Normal Inspection Eyes Eye exam: Normal Appearance ENT ENT Exam: Normal Exam External Ear Exam: Normal External Inspection TM/Canal Exam: Bilateral: Normal Nose Exam: Normal Nose Exam Mouth Exam: Normal Inspection Throat Exam: Normal Inspection Neck Neck Exam: Normal Inspection Chest Chest Inspection: Normal Inspection Respiratory Respiratory Exam: Normal Lung Sounds Bilat Respiratory Exam: Bilateral: Clear to Auscultation Cardiovascular Cardiovascular Exam: Regular Rate and Normal Rhythm Abdominal Exam Abdominal Exam: Normal Inspection, Normal Bowel Sounds and Soft Extremities Extremities Exam: Normal Inspection Back Back Exam: Normal Inspection Neurologic Neurological Exam: Alert and Oriented X3 Psychiatric Psychiatric Exam: Normal Affect and Normal Mood Skin Skin Exam: Warm, Dry, Intact, Normal Color and Other (small, old laceration on LLE proximal to ankle. ) COURSE Consultation Called: 12:29 Consultation Comments: Spoke with Dr. Cleaning, who accepted patient for admission. Discussed pt condition. Discussed Severe anemia and need for transfussion. Discussed hx of GI bleed. Discussed Heart history and renal function abnormality at this time. Pt with elevation of BNP and anticoagulation status. Recommended for hospitalist to evaluate small cut to LLE and possible need for Abx. ROR Labs Reviewed 08/08/24 10:05 08/08/24 10:05 Laboratory: WBC 4.9 X10^3/uL (3.6-10.0) 08/08/24 10:05 RBC 1.57 X10^6/uL (4.7-6.0) L 08/08/24 10:05 Hgb 5.1 g/dL (13.5-18.0) L* 08/08/24 10:05 Hct 15.7 % (42.0-54.0) L* 08/08/24 10:05 MCV 99.9 fL (80.0-100.0) 08/08/24 10:05 MCH 32.6 pg (27.0-34.0) 08/08/24 10:05 MCHC 32.6 g/dL (33.0-35.0) L 08/08/24 10:05 RDW 15.1 % (11.6-16.5) 08/08/24 10:05 Plt Count 173 X10^3/uL (150.0-450.0) 08/08/24 10:05 MPV 8.0 fL (7.4-11.0) 08/08/24 10:05 Neut % (Auto) 76.6 % (42.0-75.0) H 08/08/24 10:05 Lymph % (Auto) 12.3 % (21.0-51.0) L 08/08/24 10:05 [place] % (Auto) 6.5 % (0.0-13.0) 08/08/24 10:05 Eos % (Auto) 4.2 % (0.9-2.9) H 08/08/24 10:05 Baso % (Auto) 0.4 % (0.2-1.0) 08/08/24 10:05 Neut # (Auto) 3.8 x10^3/uL (2.2-4.8) 08/08/24 10:05 Lymph # (Auto) 0.6 X10^3/uL (1.3-2.9) L 08/08/24 10:05 [place] # (Auto) 0.3 x10^3/uL (0.3-0.8) 08/08/24 10:05 Eos # (Auto) 0.2 x10^3/uL (0.0-0.2) 08/08/24 10:05 Baso # (Auto) 0.0 X10^3/uL (0.0-0.1) 08/08/24 10:05 Absolute Nucleated RBC 0.0 /100WBC 08/08/24 10:05 PT 16.5 SECONDS (11.8-14.3) 08/08/24 10:05 INR Target Range - 08/08/24 10:05 INR 1.37 (0.8-1.3) H 08/08/24 10:05 APTT 23.5 SECONDS (22.9-36.5) 08/08/24 10:05 PTT Comment - 08/08/24 10:05 Sodium 137 mmol/L (136-145) 08/08/24 10:05 Corrected Sodium TNP 08/08/24 10:05 Potassium 5.3 mmol/L (3.5-5.1) H 08/08/24 10:05 Chloride 106 mmol/L (98-107) 08/08/24 10:05 Carbon Dioxide 19.0 mmol/L (21-32) L 08/08/24 10:05 BUN 67 mg/dL (7-18) H 08/08/24 10:05 Creatinine 3.21 mg/dL (0.70-1.30) H 08/08/24 10:05 Est GFR (MDRD) Af Amer 25 (>60) L 08/08/24 10:05 Est GFR (MDRD) Non-Af 20 (>60) L 08/08/24 10:05 Glucose 89 mg/dL (65-99) 08/08/24 10:05 Calcium 8.2 mg/dL (8.5-10.1) L 08/08/24 10:05 Corrected Calcium 8.9 mg/dL (8.5-10.1) 08/08/24 10:05 Total Bilirubin 0.50 mg/dL (0.2-1.0) 08/08/24 10:05 AST 12 Units/L (15-37) L 08/08/24 10:05 ALT 13 Units/L (12-78) 08/08/24 10:05 Alkaline Phosphatase 81 Units/L (46-116) 08/08/24 10:05 Creatine Kinase 91 Units/L (39-308) 08/08/24 10:05 Troponin I High Sens 9.1 ng/L (4.0-60.0) 08/08/24 10:05 B-Natriuretic Peptide 120 pg/mL (0-79) H 08/08/24 10:05 Total Protein 5.4 g/dL (6.4-8.2) L 08/08/24 10:05 Albumin 3.1 g/dL (3.4-5.0) L 08/08/24 10:05 Globulin 2.3 g/dL (2.5-4.5) L 08/08/24 10:05 Albumin/Globulin Ratio 1.3 Ratio (1.1-2.1) 08/08/24 10:05 Specimen Type Clean catch urine 08/08/24 11:09 Urine Color Yellow (YELLOW) 08/08/24 11:09 Urine Appearance Clear (CLEAR) 08/08/24 11:09 Urine pH 6.0 (5.0 - 8.0) 08/08/24 11:09 Ur Specific [place] 1.010 (1.000-1.030) 08/08/24 11:09 Urine Protein Negative (NEGATIVE) 08/08/24 11:09 Urine Glucose (UA) Negative (NEGATIVE) 08/08/24 11:09 Urine Ketones Negative (NEGATIVE) 08/08/24 11:09 Urine Blood Negative (NEGATIVE) 08/08/24 11:09 Urine Nitrite Negative (NEGATIVE) 08/08/24 11:09 Urine Bilirubin Negative (NEGATIVE) 08/08/24 11:09 Urine Urobilinogen Normal (NORMAL) 08/08/24 11:09 Ur Leukocyte Esterase Negative (NEGATIVE) 08/08/24 11:09 Stool Occult Blood Positive (NEGATIVE) A 08/08/24 09:55 Blood Type A POSITIVE 08/08/24 10:05 Antibody Screen Negative 08/08/24 10:05 Crossmatch See Detail 08/08/24 10:05 XRAY X-ray Results: Name: PASTOR VIEIRA : 1955 Sex: M Location: ER Order Number(s): [id number] Procedure(s):CHEST, 1 VIEW X-RAY Ordering Physician: Juan Antonio De Santiago Primary Care: Jimbo Negron Service Date: 08/08/24 Service Time: 942 EXAM: CHEST, 1 VIEW HISTORY: WEAKNESS; COMPARISON: 07/20/2023 FINDINGS: The cardiomediastinal silhouette is stable. Similar post sternotomy changes. Chronic appearing interstitial changes in the lungs. No acute airspace disease. No pneumothorax or effusion. No acute osseous abnormality. IMPRESSION: No acute cardiopulmonary disease. THIS IS AN ELECTRONICALLY VERIFIED FINAL REPORT 08/08/2024 11:20 AM - Electronically signed by Pastor Barth MD Report Electronically signed: 08/08/24 1120 CC: Juan Antonio De Santiago Opioid Opioid Risk Tool Age (Cam box if 16-45): No History of Preadolescent Sexual Abuse: No Total: 0 Total Score Risk Category: Low Risk Copyright: [facility] predicting aberrant behaviors Discharge Plan Diagnosis Discharge Problem: GI bleed, Severe anemia Discharge Plan Patient Disposition: ADMITTED INPATIENT Condition: Stable Prescriptions: No Action tizanidine 4 mg tablet 4 mg PO BID omeprazole 40 mg capsule,delayed release(DR/EC) 40 mg PO QDAY levothyroxine [Synthroid] 25 mcg tablet 25 mcg PO QDAY clonazepam 2 mg tablet 2 mg PO QDAY PRN oxybutynin chloride 5 mg tablet extended release 24hr 5 mg PO QDAY pramipexole 0.25 mg tablet 0.25 tab PO TID carvedilol 12.5 mg tablet 12.5 mg PO BID atorvastatin 20 mg tablet 20 mg PO QDAY clopidogrel 75 mg tablet 75 mg PO QDAY hydrocodone-acetaminophen 10-325 mg tablet 1 tab PO QID PRN tamsulosin 0.4 mg capsule 0.8 mg PO QDAY dicyclomine 20 mg tablet 20 mg PO QID trazodone 150 mg tablet 150 mg PO QPM montelukast 10 mg tablet 10 mg PO QDAY bupropion HCl 150 mg tablet extended release 24 hr 150 mg PO QDAY Entresto 97-103 mg tablet 1 tab PO BID furosemide 40 mg tablet 40 mg PO QDAY PRNQty: 30 1RF Rx Instructions: TAKE ONE TABLET DAILY NEEDED FOR SWELLING Health Concerns: Post Hospitalization: new medications and changes needed to prevent readmission or further decline. Pt educated and given instructions on all concerns. Plan of Treatment: Continue with present treatment and follow up plan. Pt is to keep follow up appointment as instructed and take medications as ordered. Orders to Discharge Patient Discharge Orders: Transfer (Routine); Ordered 08/08/24 Ordered By: Juan Antonio De Santiago Follow ups/Referrals Follow ups/Referrals: Jimbo Negron [Primary Care Provider] - 3 days Instructions Stand Alone Forms: Post Hospital Follow Up Care
--- NOTE | 2024-08-08 10:24 | EKG ---
Test Reason : weakness Blood Pressure : */* mmHG Vent. Rate : 56 BPM Atrial Rate : 56 BPM P-R Int : 206 ms QRS Dur : 90 ms QT Int : 496 ms P-R-T Axes : -15 40 11 degrees QTc Int : 478 ms Critical Test Result: STEMI Sinus bradycardia with premature atrial complexes with aberrant conduction Right bundle branch block Low voltage QRS Anterior infarct , possibly acute ACUTE NM / STEMI Abnormal ECG When compared with ECG of 13-FEB-2024 22:58, premature ventricular complexes are no longer present aberrant conduction is now present Questionable change in QRS duration anterior st elevation seen throughout EKGs in past but slightly worse today Confirmed by Wilber Turk MD ([id number]) on 08/08/2024 6:25:53 PM Referred By: Confirmed By: Wilber Turk MD
[2024-08-08 10:35] LABS: BASOPHILS % (AUTO) 0.4 % (0.2-1.0); EOSINOPHILS # (AUTO) 0.2 x10^3/uL (0.0-0.2); EOSINOPHILS % (AUTO) 4.2 % (0.9-2.9); LYMPHOCYTES # (AUTO) 0.6 X10^3/uL (1.3-2.9); LYMPHOCYTES % (AUTO) 12.3 % (21.0-51.0); MEAN CORPUSCULAR HEMOGLOBIN 32.6 pg (27.0-34.0); MEAN CORPUSCULAR HGB CONC 32.6 g/dL (33.0-35.0); MEAN CORPUSCULAR VOLUME 99.9 fL (80.0-100.0); MONOCYTES # (AUTO) 0.3 x10^3/uL (0.3-0.8); MONOCYTES % (AUTO) 6.5 % (0.0-13.0); NEUTROPHILS # (AUTO) 3.8 x10^3/uL (2.2-4.8); NEUTROPHILS % (AUTO) 76.6 % (42.0-75.0); PLATELET COUNT 173 X10^3/uL (150.0-450.0); RED BLOOD COUNT 1.57 X10^6/uL (4.7-6.0); RED CELL DISTRIBUTION WIDTH 15.1 % (11.6-16.5); WHITE BLOOD COUNT 4.9 X10^3/uL (3.6-10.0)
[2024-08-08 10:39] LABS: HEMATOCRIT 15.7 % (42.0-54.0); HEMOGLOBIN 5.1 g/dL (13.5-18.0)
[2024-08-08 10:41] LABS: INR 1.37 (0.8-1.3)
[2024-08-08 10:44] LABS: ALANINE AMINOTRANSFERASE 13 Units/L (12-78); ALBUMIN 3.1 g/dL (3.4-5.0); ALKALINE PHOSPHATASE 81 Units/L (46-116); ASPARTATE AMINO TRANSFERASE 12 Units/L (15-37); BLOOD UREA NITROGEN 67 mg/dL (7-18); CALCIUM 8.2 mg/dL (8.5-10.1); CHLORIDE 106 mmol/L (98-107); COR CA(FOR HYPOALB) 8.9 mg/dL (8.5-10.1); CREATINE KINASE 91 Units/L (39-308); CREATININE 3.21 mg/dL (0.70-1.30); GLUCOSE 89 mg/dL (65-99); POTASSIUM 5.3 mmol/L (3.5-5.1); SODIUM 137 mmol/L (136-145); TOTAL PROTEIN 5.4 g/dL (6.4-8.2); eGFR NON BLACK RACES 20 (>60)
[2024-08-08 11:17] LABS: BILIRUBIN,URINE NEGATIVE (NEGATIVE); BLOOD/HEMOGLOBIN,URINE NEGATIVE (NEGATIVE); GLUCOSE, URINE NEGATIVE (NEGATIVE); KETONES,URINE NEGATIVE (NEGATIVE); LEUKOCYTE ESTERASE ,URINE NEGATIVE (NEGATIVE); NITRITES,URINE NEGATIVE (NEGATIVE); PROTEIN,URINE NEGATIVE (NEGATIVE); UROBILINOGEN,URINE NORMAL (NORMAL)
--- NOTE | 2024-08-08 11:23 | RAD ---
EXAM: CHEST, 1 VIEW HISTORY: WEAKNESS; COMPARISON: 07/20/2023 FINDINGS: The cardiomediastinal silhouette is stable. Similar post sternotomy changes. Chronic appearing interstitial changes in the lungs. No acute airspace disease. No pneumothorax or ef fusion. No acute osseous abnormality. IMPRESSION: No acute cardiopulmonary disease. THIS IS AN ELECTRONICALLY VERIFIED FINAL REPORT 08/08/2024 11:20 AM - Electronically signed by Pastor Barth MD
[2024-08-08 11:48] LABS: APPEARANCE,URINE CLEAR (CLEAR); COLOR,URINE YELLOW (YELLOW)
[2024-08-08] MEDS: NS 500 ML IV 500 ML IV ONE ×2 (12:22→19:37)
[2024-08-08] MEDS ORDERED: CONSULT PHARMACY - POTASSIUM & MAGNESIUM XX SCH (13:40)
[2024-08-08] MEDS ORDERED: NovoLIN R (or HumuLIN R) SUBCUT PRN (13:40)
[2024-08-08] MEDS ORDERED: PROTONIX INJ 40 MG VIAL IVP SCH (17:00)
[2024-08-08] MEDS: NS 1,000 ML IV 1,000 ML IV SCH (19:37)
[2024-08-08 20:40] VITALS: RESP 20; O2SAT 100
[2024-08-08] MEDS: PROTONIX INJ 40 MG VIAL IVP SCH (20:51)
[2024-08-08] MEDS: SNACK - Diabetic Appropriate PO SCH (20:51)
[2024-08-08] MEDS: ROCEPHIN VIAL 1 GRAM 1 G in NS 100 ML IV 100 ML IV SCH (20:51)
[2024-08-09 00:22] VITALS: BP 145/66; PULSE 68; TEMP 98.3
[2024-08-09] MEDS: NS 500 ML IV 500 ML IV ONE (02:28)
[2024-08-09 05:33] LABS: INR 1.31 (0.8-1.3)
[2024-08-09 05:45] LABS: BASOPHILS % (AUTO) 0.7 % (0.2-1.0); EOSINOPHILS # (AUTO) 0.3 x10^3/uL (0.0-0.2); EOSINOPHILS % (AUTO) 5.7 % (0.9-2.9); LYMPHOCYTES # (AUTO) 0.8 X10^3/uL (1.3-2.9); LYMPHOCYTES % (AUTO) 16.1 % (21.0-51.0); MEAN CORPUSCULAR HEMOGLOBIN 31.8 pg (27.0-34.0); MEAN CORPUSCULAR VOLUME 96.5 fL (80.0-100.0); MEAN PLATELET VOLUME 7.9 fL (7.4-11.0); MONOCYTES # (AUTO) 0.4 x10^3/uL (0.3-0.8); MONOCYTES % (AUTO) 8.3 % (0.0-13.0); NEUTROPHILS # (AUTO) 3.3 x10^3/uL (2.2-4.8); NEUTROPHILS % (AUTO) 69.2 % (42.0-75.0); PLATELET COUNT 183 X10^3/uL (150.0-450.0); RED BLOOD COUNT 2.06 X10^6/uL (4.7-6.0); RED CELL DISTRIBUTION WIDTH 16.8 % (11.6-16.5); WHITE BLOOD COUNT 4.7 X10^3/uL (3.6-10.0)
[2024-08-09 05:47] LABS: HEMATOCRIT 19.9 % (42.0-54.0); HEMOGLOBIN 6.6 g/dL (13.5-18.0)
[2024-08-09 05:51] LABS: ALANINE AMINOTRANSFERASE 13 Units/L (12-78); ALBUMIN 2.8 g/dL (3.4-5.0); ALKALINE PHOSPHATASE 75 Units/L (46-116); ASPARTATE AMINO TRANSFERASE 11 Units/L (15-37); BLOOD UREA NITROGEN 59 mg/dL (7-18); CALCIUM 8.3 mg/dL (8.5-10.1); CARBON DIOXIDE 19.5 mmol/L (21-32); CHLORIDE 109 mmol/L (98-107); COR CA(FOR HYPOALB) 9.3 mg/dL (8.5-10.1); CREATININE 2.66 mg/dL (0.70-1.30); GLUCOSE 72 mg/dL (65-99); MAGNESIUM 1.7 mg/dL (2.0-2.9); POTASSIUM 5.1 mmol/L (3.5-5.1); SODIUM 139 mmol/L (136-145); eGFR NON BLACK RACES 25 (>60)
[2024-08-09] MEDS ORDERED: CONSULT PHARMACY - POTASSIUM & MAGNESIUM XX SCH (07:00)
[2024-08-09] MEDS: MAG-OX TAB PO SCH (08:43)
[2024-08-09] MEDS ORDERED: NORCO 10/325 TAB PO PRN (10:03)
--- NOTE | 2024-08-09 10:12 | DR.H&P ---
H&P History & Physical for Day of: H&P Date: 08/08/24 Chief Complaint Chief Complaint: Generalized weakness, bloody stool History of Present Illness History of Present Illness: Mr. Pineda is a 69-year-old male with past medical history of hypertension, CAD, atrial fibrillation, recent Watchman procedure, GERD, hypothyroidism and insomnia presented with generalized weakness and bloody stools. He states he had Watchman procedure done 6 weeks ago and was told to stop Eliquis and only take Plavix. He states he got confused between Eliquis and Entresto and has been taking Eliquis along with Plavix since then. He started noticing black stools last week and was feeling weak. Denies any other bleeding. ER workup showed hemoglobin 5.1, elevated creatinine and BUN. He was given gentle hydration and started on blood transfusion. He was admitted for further evaluation. Dr. Maier was also consulted. Patient does report seeing Dr Lugo and having EGD and colonoscopy few months ago due to similar symptoms while he was on Eliquis. Labs/imaging reviewed: -Hemoglobin 5.1 BUN 67 creatinine 3.21 potassium 5.3 FOBT + -Chest x-ray normal Plan: Admit on MedSurg, transfuse 2 units PRBCs. Monitor hemoglobin. Follow s urgery recommendations. NPO for now. IV Protonix. Resume home medications. Continue gentle hydration. Monitor for further bleeding episodes. Replace electrolytes as per protocol. Monitor a.m. labs and imaging. Past Medical History Past Medical History: Anemia, CHF, Coronary Artery Disease, Diabetes, Dyslipidemia, GERD and Hypertension Past Surgical History Surgical History: Joint Replacement, Ortho Surgery and Tonsillectomy Family History Family Medical History: [place] Social History Does patient currently use any type of tobacco product: No Have you used tobacco products in the last 12 months: No Type of Tobacco Use: None Does any household member use tobacco: No Alcohol Use: None Drug Use: None Medications Home Medications: Home Medications Medication Instructions Recorded Confirmed Type clonazepam 2 mg tablet 2 mg PO QDAY PRN 04/12/23 08/08/24 History levothyroxine 25 mcg tablet 25 mcg PO QDAY 04/12/23 08/08/24 History (Synthroid) omeprazole 40 mg capsule,delayed 40 mg PO QDAY 04/12/23 08/08/24 History release oxybutynin chloride 5 mg 5 mg PO QDAY 04/12/23 08/08/24 History tablet,extended release 24 hr pramipexole 0.25 mg tablet 0.25 tab PO TID 04/12/23 08/08/24 History tizanidine 4 mg tablet 4 mg PO BID 04/12/23 08/08/24 History sacubitril 97 mg-valsartan 103 mg 1 tab PO BID 07/20/23 08/08/24 History tablet (Entresto) carvedilol 12.5 mg tablet 12.5 mg PO BID 02/14/24 08/08/24 History atorvastatin 20 mg tablet 20 mg PO QDAY 08/08/24 08/08/24 History bupropion HCl 150 mg 24 hr tablet, 150 mg PO QDAY 08/08/24 08/08/24 History extended release clopidogrel 75 mg tablet 75 mg PO QDAY 08/08/24 08/08/24 History dicyclomine 20 mg tablet 20 mg PO QID 08/08/24 08/08/24 History hydrocodone 10 mg-acetaminophen 1 tab PO QID PRN 08/08/24 08/08/24 History 325 mg tablet montelukast 10 mg tablet 10 mg PO QDAY 08/08/24 08/08/24 History tamsulosin 0.4 mg capsule 0.8 mg PO QDAY 08/08/24 08/08/24 History trazodone 150 mg tablet 150 mg PO QPM 08/08/24 08/08/24 History Allergies Allergies Allergy/AdvReac Type Severity Reaction Status Date / Time No Known Drug Allergies Allergy Verified 02/13/24 23:20 Labs 08/09/24 04:15 08/09/24 04:15 Labs: Laboratory WBC 4.9 X10^3/uL (3.6-10.0) 08/08/24 10:05 RBC 1.57 X10^6/uL (4.7-6.0) L 08/08/24 10:05 Hgb 5.1 g/dL (13.5-18.0) L* 08/08/24 10:05 Hct 15.7 % (42.0-54.0) L* 08/08/24 10:05 MCV 99.9 fL (80.0-100.0) 08/08/24 10:05 MCH 32.6 pg (27.0-34.0) 08/08/24 10:05 MCHC 32.6 g/dL (33.0-35.0) L 08/08/24 10:05 RDW 15.1 % (11.6-16.5) 08/08/24 10:05 Plt Count 173 X10^3/uL (150.0-450.0) 08/08/24 10:05 MPV 8.0 fL (7.4-11.0) 08/08/24 10:05 Neut % (Auto) 76.6 % (42.0-75.0) H 08/08/24 10:05 Lymph % (Auto) 12.3 % (21.0-51.0) L 08/08/24 10:05 [place] % (Auto) 6.5 % (0.0-13.0) 08/08/24 10:05 Eos % (Auto) 4.2 % (0.9-2.9) H 08/08/24 10:05 Baso % (Auto) 0.4 % (0.2-1.0) 08/08/24 10:05 Neut # (Auto) 3.8 x10^3/uL (2.2-4.8) 08/08/24 10:05 Lymph # (Auto) 0.6 X10^3/uL (1.3-2.9) L 08/08/24 10:05 [place] # (Auto) 0.3 x10^3/uL (0.3-0.8) 08/08/24 10:05 Eos # (Auto) 0.2 x10^3/uL (0.0-0.2) 08/08/24 10:05 Baso # (Auto) 0.0 X10^3/uL (0.0-0.1) 08/08/24 10:05 Absolute Nucleated RBC 0.0 /100WBC 08/08/24 10:05 PT 16.5 SECONDS (11.8-14.3) 08/08/24 10:05 INR Target Range - 08/08/24 10:05 INR 1.37 (0.8-1.3) H 08/08/24 10:05 APTT 23.5 SECONDS (22.9-36.5) 08/08/24 10:05 PTT Comment - 10/03/24 10:05 Sodium 137 mmol/L (136-145) 08/08/24 10:05 Corrected Sodium TNP 08/08/24 10:05 Potassium 5.3 mmol/L (3.5-5.1) H 08/08/24 10:05 Chloride 106 mmol/L (98-107) 08/08/24 10:05 Carbon Dioxide 19.0 mmol/L (21-32) L 08/08/24 10:05 BUN 67 mg/dL (7-18) H 08/08/24 10:05 Creatinine 3.21 mg/dL (0.70-1.30) H 08/08/24 10:05 Est GFR (MDRD) Af Amer 25 (>60) L 08/08/24 10:05 Est GFR (MDRD) Non-Af 20 (>60) L 08/08/24 10:05 Glucose 89 mg/dL (65-99) 08/08/24 10:05 Calcium 8.2 mg/dL (8.5-10.1) L 08/08/24 10:05 Corrected Calcium 8.9 mg/dL (8.5-10.1) 08/08/24 10:05 Total Bilirubin 0.50 mg/dL (0.2-1.0) 08/08/24 10:05 AST 12 Units/L (15-37) L 08/08/24 10:05 ALT 13 Units/L (12-78) 08/08/24 10:05 Alkaline Phosphatase 81 Units/L (46-116) 08/08/24 10:05 Creatine Kinase 91 Units/L (39-308) 08/08/24 10:05 Troponin I High Sens 9.1 ng/L (4.0-60.0) 08/08/24 10:05 B-Natriuretic Peptide 120 pg/mL (0-79) H 08/08/24 10:05 Total Protein 5.4 g/dL (6.4-8.2) L 08/08/24 10:05 Albumin 3.1 g/dL (3.4-5.0) L 08/08/24 10:05 Globulin 2.3 g/dL (2.5-4.5) L 08/08/24 10:05 Albumin/Globulin Ratio 1.3 Ratio (1.1-2.1) 08/08/24 10:05 Specimen Type Clean catch urine 08/08/24 11:09 Urine Color Yellow (YELLOW) 08/08/24 11:09 Urine Appearance Clear (CLEAR) 08/08/24 11:09 Urine pH 6.0 (5.0 - 8.0) 08/08/24 11:09 Ur Specific [place] 1.010 (1.000-1.030) 08/08/24 11:09 Urine Protein Negative (NEGATIVE) 08/08/24 11:09 Urine Glucose (UA) Negative (NEGATIVE) 08/08/24 11:09 Urine Ketones Negative (NEGATIVE) 08/08/24 11:09 Urine Blood Negative (NEGATIVE) 08/08/24 11:09 Urine Nitrite Negative (NEGATIVE) 08/08/24 11:09 Urine Bilirubin Negative (NEGATIVE) 08/08/24 11:09 Urine Urobilinogen Normal (NORMAL) 08/08/24 11:09 Ur Leukocyte Esterase Negative (NEGATIVE) 08/08/24 11:09 Stool Occult Blood Positive (NEGATIVE) A 08/08/24 09:55 Blood Type A POSITIVE 08/08/24 10:05 Antibody Screen Negative 08/08/24 10:05 Crossmatch See Detail 08/08/24 10:05 Review of Systems Constitutional: Weakness Eyes: No Symptoms Reported ENT: No Symptoms Reported Respiratory: No Symptoms Reported Cardiovascular: No Symptoms Reported Gastrointestinal: Melena Genitourinary: No Symptoms Reported Musculoskeletal: No Symptoms Reported Skin: No Symptoms Reported Neurological: No Symptoms Reported Physical Exam Vital Signs: Vital Signs Pulse Rate [Left Radial] 57 Pulse Rate 51 Pulse Rate 57 Pulse Rate 56 Pulse Rate 57 Respiratory Rate 15 Respiratory Rate 25 Respiratory Rate 19 Respiratory Rate 25 Respiratory Rate 24 Blood Pressure [Left Arm] 126/58 O2 Sat by Pulse Oximetry 98 O2 Sat by Pulse Oximetry 100 O2 Sat by Pulse Oximetry 100 O2 Sat by Pulse Oximetry 100 O2 Sat by Pulse Oximetry 100 Oriented: Normal Eyes: Normal Respiratory: Clear Throughout Cardiovascular: Normal Auscultation: Bowel Sounds: Normal Palpation: Normal Tenderness: Normal Skin: Normal Musculoskeletal: Normal Psychiatric: Normal Mood Description: Calm Affect: Normal Speech Pattern: Clear and Appropriate Assessment/Plan (1) GI bleed: Qualifiers: GI bleed type/associated pathology: melena Qualified Code(s): K92.1 - Melena Status: Acute (2) Weakness: Status: Acute (3) Cardiomyopathy: Qualifiers: Cardiomyopathy type: unspecified Qualified Code(s): I42.9 - Cardiomyopathy, unspecified Status: Acute (4) CAD (coronary artery disease): Qualifiers: Coronary Disease-Associated Artery/Lesion type: unspecified vessel or lesion type [place] vs. transplanted heart: [place] heart Associated angina: w ithout angina Qualified Code(s): I25.10 - Atherosclerotic heart disease of [place] coronary artery without angina pectoris Status: Acute (5) TREVER (acute kidney injury): Status: Acute (6) GERD (gastroesophageal reflux disease): Qualifiers: Esophagitis presence: without esophagitis Qualified Code(s): K21.9 - Gastro-esophageal reflux disease without esophagitis Status: Chronic (7) Presence of Watchman left atrial appendage closure device: Status: Acute Review H&P Reviewed: Yes Patient was examined?: Yes
[2024-08-09] MEDS: NS 250 ML IV 250 ML IV ONE ×2 (10:30→14:19)
[2024-08-09] MEDS: LIPITOR TAB 20 MG PO SCH (11:01)
[2024-08-09] MEDS: COREG TAB 12.5 MG PO SCH (11:01)
[2024-08-09] MEDS: MIRAPEX TAB 0.25 MG PO SCH (11:01)
[2024-08-09] MEDS: WELLBUTRIN XL 150 MG (DAILY) PO SCH (11:01)
[2024-08-09] MEDS: OXYBUTYNIN CHLORIDE ER PO SCH (11:01)
[2024-08-09 17:58] LABS: HEMATOCRIT 26.9 % (42.0-54.0)
[2024-08-09 18:00] LABS: HEMOGLOBIN 9.1 g/dL (13.5-18.0)
[2024-08-09] MEDS ORDERED: DESYREL PO SCH (21:00)
[2024-08-10] MEDS ORDERED: SYNTHROID 25 mcg TAB PO SCH (09:00)
[2024-08-10] MEDS ORDERED: KLONOPIN TAB 1 MG PO PRN (09:00)
--- NOTE | 2024-08-14 10:51 | W.DIS.FURT ---
Summary of Discharge Discharge Summary of Date Date of Exam: 08/09/24 Admission Date Date of Admission: 08/08/24 Admission Diagnosis Patient Problems (Updated 08/09/24 @ 10:12 by Zeynep Cleaning) Severe anemia (Acute) D64.9 GI bleed (Acute) K92.2 Hospital Course: Mr. Pineda is a 69-year-old male with past medical history of hypertension, CAD, atrial fibrillation, recent Watchman procedure, GERD, hypothyroidism and insomnia presented with generalized weakness and bloody stools. He states he had Watchman procedure done 6 weeks ago and was told to stop Eliquis and only take Plavix. He states he got confused between Eliquis and Entresto and has been taking Eliquis along with Plavix since then. He started noticing black stools last week and was feeling weak. Denies any other bleeding. ER workup showed hemoglobin 5.1, elevated creatinine and BUN. He was given gentle hydration and started on blood transfusion. He was admitted for further evaluation. Dr. Maier was also consulted. Patient does report seeing Dr Lugo and having EGD and colonoscopy few months ago due to similar symptoms while he was on Eliquis. Patient recieved a total of 4 units of PRBCs. He did not have any bleeding episodes. Dr Maier did not recommend any procedure at this time. Patient's labs were monitored daily and electrolytes replaced. He was tolerating PO intake and feeling better. He also had a leg wound due to injury prior to coming to the hospital. He was started on IV Rocephin and dressing was changed daily. He was stable to be discharged home. Hgb was 9.1 prior to discharge. Patient was told to stop eliquis and continue with plavix. He will f/u with PCP and cardiology as scheduled. Labs: Laboratory Last Values WBC 4.7 X10^3/uL (3.6-10.0) 08/09/24 04:15 RBC 2.06 X10^6/uL (4.7-6.0) L 08/09/24 04:15 Hgb 9.1 g/dL (13.5-18.0) L D 08/09/24 17:41 Hct 26.9 % (42.0-54.0) L 08/09/24 17:41 MCV 96.5 fL (80.0-100.0) 08/09/24 04:15 MCH 31.8 pg (27.0-34.0) 08/09/24 04:15 MCHC 33.0 g/dL (33.0-35.0) 08/09/24 04:15 RDW 16.8 % (11.6-16.5) H 08/09/24 04:15 Plt Count 183 X10^3/uL (150.0-450.0) 08/09/24 04:15 MPV 7.9 fL (7.4-11.0) 08/09/24 04:15 Neut % (Auto) 69.2 % (42.0-75.0) 08/09/24 04:15 Lymph % (Auto) 16.1 % (21.0-51.0) L 08/09/24 04:15 [place] % (Auto) 8.3 % (0.0-13.0) 08/09/24 04:15 Eos % (Auto) 5.7 % (0.9-2.9) H 08/09/24 04:15 Baso % (Auto) 0.7 % (0.2-1.0) 08/09/24 04:15 Neut # (Auto) 3.3 x10^3/uL (2.2-4.8) 08/09/24 04:15 Lymph # (Auto) 0.8 X10^3/uL (1.3-2.9) L 08/09/24 04:15 Morris # (Auto) 0.4 x10^3/uL (0.3-0.8) 08/09/24 04:15 Eos # (Auto) 0.3 x10^3/uL (0.0-0.2) H 08/09/24 04:15 Baso # (Auto) 0.0 X10^3/uL (0.0-0.1) 08/09/24 04:15 Absolute Nucleated RBC 0.1 /100WBC 08/09/24 04:15 PT 16.0 SECONDS (11.8-14.3) 08/09/24 04:15 INR Target Range - 08/09/24 04:15 INR 1.31 (0.8-1.3) H 08/09/24 04:15 APTT 23.5 SECONDS (22.9-36.5) 08/08/24 10:05 PTT Comment - 08/08/24 10:05 Sodium 139 mmol/L (136-145) 08/09/24 04:15 Corrected Sodium TNP 08/09/24 04:15 Potassium 5.1 mmol/L (3.5-5.1) 08/09/24 04:15 Chloride 109 mmol/L (98-107) H 08/09/24 04:15 Carbon Dioxide 19.5 mmol/L (21-32) L 08/09/24 04:15 BUN 59 mg/dL (7-18) H 08/09/24 04:15 Creatinine 2.66 mg/dL (0.70-1.30) H 08/09/24 04:15 Est GFR (MDRD) Af Amer 31 (>60) L 08/09/24 04:15 Est GFR (MDRD) Non-Af 25 (>60) L 08/09/24 04:15 Glucose 72 mg/dL (65-99) 08/09/24 04:15 POC Glucose (mg/dL) 101 mg/dL (65-99) H 08/09/24 16:31 Calcium 8.3 mg/dL (8.5-10.1) L 08/09/24 04:15 Corrected Calcium 9.3 mg/dL (8.5-10.1) 08/09/24 04:15 Magnesium 1.7 mg/dL (2.0-2.9) L 08/09/24 04:15 Total Bilirubin 0.80 mg/dL (0.2-1.0) 08/09/24 04:15 AST 11 Units/L (15-37) L 08/09/24 04:15 ALT 13 Units/L (12-78) 08/09/24 04:15 Alkaline Phosphatase 75 Units/L (46-116) 08/09/24 04:15 Creatine Kinase 91 Units/L (39-308) 08/08/24 10:05 Troponin I High Sens 9.1 ng/L (4.0-60.0) 08/08/24 10:05 B-Natriuretic Peptide 120 pg/mL (0-79) H 08/08/24 10:05 Total Protein 5.0 g/dL (6.4-8.2) L 08/09/24 04:15 Albumin 2.8 g/dL (3.4-5.0) L 08/09/24 04:15 Globulin 2.2 g/dL (2.5-4.5) L 08/09/24 04:15 Albumin/Globulin Ratio 1.3 Ratio (1.1-2.1) 08/09/24 04:15 Specimen Type Clean catch urine 08/08/24 11:09 Urine Color Yellow (YELLOW) 08/08/24 11:09 Urine Appearance Clear (CLEAR) 08/08/24 11:09 Urine pH 6.0 (5.0 - 8.0) 08/08/24 11:09 Ur Specific [place] 1.010 (1.000-1.030) 08/08/24 11:09 Urine Protein Negative (NEGATIVE) 08/08/24 11:09 Urine Glucose (UA) Negative (NEGATIVE) 08/08/24 11:09 Urine Ketones Negative (NEGATIVE) 08/08/24 11:09 Urine Blood Negative (NEGATIVE) 08/08/24 11:09 Urine Nitrite Negative (NEGATIVE) 08/08/24 11:09 Urine Bilirubin Negative (NEGATIVE) 08/08/24 11:09 Urine Urobilinogen Normal (NORMAL) 08/08/24 11:09 Ur Leukocyte Esterase Negative (NEGATIVE) 08/08/24 11:09 Stool Occult Blood Positive (NEGATIVE) A 08/08/24 09:55 Blood Type A POSITIVE 08/08/24 10:05 Antibody Screen Negative 08/08/24 10:05 Crossmatch See Detail 08/08/24 10:05 Reason For Visit: GI BLEED , ANEMIA Discharge Diagnosis All Active Problems (Updated 08/09/24 @ 10:12 by Zeynep Cleaning) Presence of Watchman left atrial appendage closure device (Acute) Severe anemia (Acute) Cardiomyopathy (Acute) CAD (coronary artery disease) (Acute) TREVER (acute kidney injury) (Acute) GI bleed (Acute) Acute hypotension (Acute) Symptomatic anemia (Acute) Rectal bleed (Acute) Unsteady gait (Acute) Fatigue (Acute) Weakness (Acute) Contusion of knee, left (Acute) Abrasion of knee, left (Acute) CHF (congestive heart failure) (Acute) Exertional dyspnea (Acute) Anemia (Acute) GERD (gastroesophageal reflux disease) (Chronic) Diabetes mellitus (Chronic) HTN (hypertension) (Chronic) Acute renal failure (Acute) Hyperkalemia (Acute) Contusion of left knee (Acute) Knee sprain (Acute) Laceration of head (Acute) Strain of left hip (Acute) Plan of Treatment: Continue with present treatment and follow up plan. Pt is to keep follow up appointment as instructed and take medications as ordered. Discharge Medications Discharge Medications: No Known Drug Allergies Allergy (Verified 02/13/24 23:20) CONTINUE taking the following medications atorvastatin 20 mg tablet 20 mg PO QDAY 08/08/24 [History] bupropion HCl 150 mg 24 hr tablet, extended release 150 mg PO QDAY 08/08/24 [History] clopidogrel 75 mg tablet 75 mg PO QDAY 08/08/24 [History] dicyclomine 20 mg tablet 20 mg PO QID 08/08/24 [History] hydrocodone 10 mg-acetaminophen 325 mg tablet 1 tab PO QID PRN 08/08/24 [History] montelukast 10 mg tablet 10 mg PO QDAY 08/08/24 [History] tamsulosin 0.4 mg capsule 0.8 mg PO QDAY 08/08/24 [History] trazodone 150 mg tablet 150 mg PO QPM 08/08/24 [History] New Prescriptions cephalexin 500 mg capsule 500 mg PO BID #10 caps 08/09/24 [Rx] Discharge Disposition Discharge Disposition: home Discharge Condition: stable Discharge Plan Discharge Plan Hospital Course: Mr. Pineda is a 69-year-old male with past medical history of hypertension, CAD, atrial fibrillation, recent Watchman procedure, GERD, hypothyroidism and insomnia presented with generalized weakness and bloody stools. He states he had Watchman procedure done 6 weeks ago and was told to stop Eliquis and only take Plavix. He states he got confused between Eliquis and Entresto and has been taking Eliquis along with Plavix since then. He started noticing black stools last week and was feeling weak. Denies any other bleeding. ER workup showed hemoglobin 5.1, elevated creatinine and BUN. He was given gentle hydration and started on blood transfusion. He was admitted for further evaluation. Dr. Maier was also consulted. Patient does report seeing Dr Lugo and having EGD and colonoscopy few months ago due to similar symptoms while he was on Eliquis. Patient recieved a total of 4 units of PRBCs. He did not have any bleeding episodes. Dr Maier did not recommend any procedure at this time. Patient's labs were monitored daily and electrolytes replaced. He was tolerating PO intake and feeling better. He also had a leg wound due to injury prior to coming to the hospital. He was started on IV Rocephin and dressing was changed daily. He was stable to be discharged home. Hgb was 9.1 prior to discharge. Patient was told to stop eliquis and continue with plavix. He will f/u with PCP and cardiology as scheduled. Patient Disposition: 01 HOME, SELF-CARE Condition: Stable Health Concerns: Post Hospitalization: new medications and changes needed to prevent readmission or further decline. Pt educated and given instructions on all concerns. Plan of Treatment: Continue with present treatment and follow up plan. Pt is to keep follow up appointment as instructed and take medications as ordered. Prescription drug monitoring program results: PDMP reviewed and no concerns identified Prescriptions: New cephalexin 500 mg Capsule 500 mg PO BID Qty: 10 0RF Continued tizanidine 4 mg tablet 4 mg PO BID omeprazole 40 mg capsule,delayed release(DR/EC) 40 mg PO QDAY levothyroxine [Synthroid] 25 mcg tablet 25 mcg PO QDAY clonazepam 2 mg tablet 2 mg PO QDAY PRN oxybutynin chloride 5 mg tablet extended release 24hr 5 mg PO QDAY pramipexole 0.25 mg tablet 0.25 tab PO TID carvedilol 12.5 mg tablet 12.5 mg PO BID atorvastatin 20 mg tablet 20 mg PO QDAY clopidogrel 75 mg tablet 75 mg PO QDAY hydrocodone-acetaminophen 10-325 mg tablet 1 tab PO QID PRN tamsulosin 0.4 mg capsule 0.8 mg PO QDAY dicyclomine 20 mg tablet 20 mg PO QID trazodone 150 mg tablet 150 mg PO QPM montelukast 10 mg tablet 10 mg PO QDAY bupropion HCl 150 mg tablet extended release 24 hr 150 mg PO QDAY Entresto 97-103 mg tablet 1 tab PO BID furosemide 40 mg tablet 40 mg PO QDAY PRNQty: 30 1RF Rx Instructions: TAKE ONE TABLET DAILY NEEDED FOR SWELLING Follow ups/Referrals Follow ups/Referrals: Jimbo Negron [Primary Care Provider] - 3 days Instructions Instructions: Anemia Activity Restrictions/Additional Instructions: Do not continue eliquis Stand Alone Forms: Excuse From Work or School, Post Hospital Follow Up Care
== END 2024-08-09 20:10 | disposition home or self-care (01) | DRG 378 ==
LOC: ER 08:56 → MED/SURG 08:56 → OBSVTOIN 12:43 → MED/SURG 13:32
PROVIDERS: ADMIT Internal Medicine; ATTEND Internal Medicine
DX: Z79.01 Long term (current) use of anticoagulants; Z16.29 Resistance to other single specified antibiotic; E78.2 Mixed hyperlipidemia; Z59.89 Other problems related to housing and economic circumstances; B95.7 Other staphylococcus as the cause of diseases classified elsewhere; I42.9 Cardiomyopathy, unspecified; S81.012A Laceration without foreign body, left knee, initial encounter; N17.8 Other acute kidney failure; R79.1 Abnormal coagulation profile; Z16.19 Resistance to other specified beta lactam antibiotics; K21.9 Gastro-esophageal reflux disease without esophagitis; Z95.818 Presence of other cardiac implants and grafts; E83.42 Hypomagnesemia; I25.10 Atherosclerotic heart disease of native coronary artery without angina pectoris; S50.11XA Contusion of right forearm, initial encounter; X58.XXXA Exposure to other specified factors, initial encounter; Z16.23 Resistance to quinolones and fluoroquinolones; Y92.9 Unspecified place or not applicable; D64.89 Other specified anemias; R53.1 Weakness; E11.65 Type 2 diabetes mellitus with hyperglycemia; E87.5 Hyperkalemia; Z16.11 Resistance to penicillins; K92.1 Melena; R42 Dizziness and giddiness; I10 Essential (primary) hypertension; R19.7 Diarrhea, unspecified; R94.31 Abnormal electrocardiogram [ECG] [EKG]